=== PATIENT | male | born 1955 | race Caucasian/White ===

== ENCOUNTER → 2018-06-18 09:24 | Outpatient (CLI) | payer OTHER, SELFPAY ==
[2018-06-18 10:29] LABS: Hemoglobin A1C% w Est Avg Glu 9.1 % (4.0-6.0)
== END ==
PROVIDERS: PCP Family Medicine; Visit Provider Family Medicine
DX: E11.9 Type 2 diabetes mellitus without complications (principal)
CPT/HCPCS: 36415; 83036

== ENCOUNTER → 2018-09-25 11:05 | Outpatient (CLI) | payer OTHER, SELFPAY ==
[2018-09-25 11:59] LABS: Hemoglobin A1C% w Est Avg Glu 9.9 % (4.0-6.0)
[2018-09-25 12:25] LABS: Cholesterol 214 mg/dL (140-199); Creatine Kinase 89 U/L (55-170); HDL Cholesterol 40 mg/dL (40-60); LDL Cholesterol Calculated 105 mg/dL (<100); Triglycerides 345 mg/dL (35-150)
== END ==
PROVIDERS: PCP Family Medicine; Visit Provider Family Medicine
DX: E78.5 Hyperlipidemia, unspecified (principal); E11.9 Type 2 diabetes mellitus without complications
CPT/HCPCS: 36415; 80061; 82550; 83036

== ENCOUNTER → 2019-02-03 09:25 | Outpatient (CLI) | payer OTHER, SELFPAY ==
[2019-02-03 10:24] LABS: Hemoglobin A1C% w Est Avg Glu 9.5 % (4.0-6.0)
== END ==
PROVIDERS: PCP Family Medicine; Visit Provider Family Medicine
DX: E11.9 Type 2 diabetes mellitus without complications (principal)
CPT/HCPCS: 36415; 83036

== ENCOUNTER 2019-02-12 20:51 | Emergency (ER) | payer OTHER, SELFPAY ==
[2019-02-12 20:54] VITALS: BP 157/98; PULSE 104; RESP 20; TEMP 36.6; O2SAT 96
--- NOTE | 2019-02-12 21:01 | ED_ITS ---
HPI - Neuro Symptoms/Deficit General Chief Complaint: Neuro Symptoms/Deficit Stated Complaint: LIGHTHEADED, BLURRY VISION Time Seen by Provider: 02/12/19 21:00 Source: patient Mode of arrival: ambulatory Limitations: no limitations History of Present Illness HPI Narrative: Patient is a 63-year-old male here for evaluation of vision changes. He states that at least 2 days ago if not longer than that he started having episodes where he would look down and he would see double. He states he feels like this has been worsening over the past couple days. A couple days ago he did have a right-sided headache but this is now gone. Does have a history of diabetes and hypertension but does not check these values at home. He states that he is taking his medications. He describes the vision changes has when he looks down or looks to the side he sees double vision. He states that it is a vertical diplopia. States that the symptoms resolve when he looks straight ahead or looks up. He states that the symptoms are not there if he covers 1 eye. No prior eye issues. On Anticoagulants: No Related Data Home Medications Medication Instructions Recorded Confirmed aspirin 81 mg tablet,delayed 81 mg PO DAILY 03/26/18 10/02/18 release coenzyme Q10 75 mg capsule 75 mg PO DAILY 10/02/18 10/02/18 Previous Rx's Medication Instructions Recorded glimepiride [Amaryl] 8 mg PO QAM #180 tab 12/04/17 losartan 50 mg PO BID #180 tab 12/04/17 metformin 0 PO SEE INSTRUCTIONS #225 tab 12/04/17 amlodipine 5 mg tablet 5 mg PO QDAY #90 tab 03/26/18 empagliflozin 10 mg tablet 10 mg PO QAM #30 tab 10/02/18 Allergies Allergy/AdvReac Type Severity Reaction Status Date / Time latex [LATEX] Allergy Mild LOCALIZED Verified 10/02/18 10:10 RASH Review of Systems Constitutional Denies fatigue and Denies headache(s) Eyes Denies change in vision, Reports diplopia, Denies itchy eyes, Denies loss of vision and Denies photophobia ENT Ears, Nose, Mouth, and Throat: Denies vertigo, Denies dizziness, Denies ear discharge, Denies facial pain, Denies headache(s), Denies epistaxis, Denies disequilibrium and Denies sore throat Cardiovascular Denies chest pain, Denies palpitations and Denies dyspnea Respiratory Denies cough and Denies dyspnea Gastrointestinal Gastrointestinal: Denies abdominal pain, Denies nausea and Denies vomiting Genitourinary Denies dysuria Musculoskeletal Denies back pain Integumentary/Breasts Denies rash Neurologic Denies abnormal speech, Denies behavioral changes, Denies confusion, Denies vertigo, Denies dizziness, Denies headache(s), Denies lack of coordination, Denies focal weakness, Denies loss of vision, Denies paresthesias and Denies disequilibrium Psychiatric Denies behavioral changes and Denies confusion Endocrine Denies fatigue and Denies palpitations Hematologic/Lymphatic Denies easy bleeding and Denies easy bruising Allergic/Immunologic Denies itchy eyes [facility] Medical History Diabetes (Acute) Hypertension (Acute) Family History (Updated 07/29/15 @ 00:00 by Conversion Provider) Brother Diabetes mellitus Father Alcoholism Colorectal cancer Congestive heart failure Hyperlipidemia Mother Alcoholism Sister Diabetes mellitus Social History Smoking Status: Never smoker Family History (Updated 07/29/15 @ 00:00 by Conversion Provider) Brother Diabetes mellitus Father Alcoholism Colorectal cancer Congestive heart failure Hyperlipidemia Mother Alcoholism Sister Diabetes mellitus Social History Smoking Status: Never smoker Exam Initial Vital Signs Initial Vital Signs: Vital Signs Temperature 97.8 F 02/12/19 20:54 Pulse Rate 104 H 02/12/19 20:54 Respiratory Rate 20 02/12/19 20:54 Blood Pressure 157/98 H 02/12/19 20:54 Pulse Oximetry 96 02/12/19 20:54 Const General: cooperative, comfortable, well developed, well groomed and No acute distress Orientation: alert, awake and oriented x3 HENMT Head: normal to inspection and normocephalic Nose: external nose normal Face and sinus: normal facial exam Mouth: oral mucosae normal Eyes Pupils: PERRL EOM: EOM intact bilaterally Other: With binocular vision patient appears that inferior and medial deviation of the left eye is not as much as the right eye. Resp Effort & Inspection: normal respiratory effort Cardio Rate: tachycardic Rhythm: regular rhythm Pulses: radial pulses present GI Inspection: non-distended Palpation: soft Skin Lesions: no lesions Rashes: no rashes Neuro General: alert, awake and oriented x3 Cranial Nerves: CN's II-XI intact bilaterally (Cranial nerves intact except for what is described in the eye section) Cognition: normal cognition Speech: speech normal Gait: normal gait Motor: muscle tone normal throughout Sensory Exam: no sensory deficits noted Extrem General: normal to inspection and capillary refill normal Psych Appearance: grossly normal and well kempt Scores GCS [place] coma scale eye opening: Spontaneous Reji coma scale verbal response: Orientated [place] coma scale motor response: Obey commands Reji coma scale total score: 15 NIH Stroke Scale Level of Conciousness: Alert, keenly responsive Ask month/age: Answers both questions correctly. Open/close eyes, close hand: Performs both tasks correctly Best gaze horizontal: Normal Visual day: No visual loss Facial palsy: Normal symetrical movement Left arm drift: No drift for full 10 sec Right arm drift: No drift for full 10 sec Left leg drift: No drift for full 10 sec Right leg drift: No drift for full 10 sec Limb ataxia: Absent Sensory on face/arms/legs: Normal, no sensory loss Best language: No aphasia, normal Dysarthria: Normal Extinction or inattention: No abnormality Total NIH Stroke scale score: 0 Course Orders Ordered: ED Orders 02/12/19 21:02 EKG-12 Lead Stat 02/12/19 21:10 Basic Metabolic Panel Stat Complete Blood Count AUTO DIFF Stat Erythrocyte Sedimentation Rate Stat Thyroid Stimulating Hormone Stat 02/12/19 21:44 CT head/brain wo con Stat Vital Signs - 8 hr 02/12/19 20:54 02/12/19 23:04 Temperature 97.8 F 98.4 F Pulse Rate 104 H 92 H Respiratory Rate 20 16 Blood Pressure 157/98 H 131/77 Pulse Oximetry 96 96 MDM - Neuro Symptoms/Deficit Lab Data Attestation: I reviewed the patient's lab results. Result diagrams: 02/12/19 21:10 02/12/19 21:10 Lab Results 02/12/19 02/12/19 02/12/19 Range/Units 21:10 21:10 21:10 WBC 7.5 (4.5-11.0) X10^3/uL RBC 5.81 (4.5-5.9) X10^6/uL Hgb 16.2 (13.5-17.5) g/dL Hct 48.2 (41-53) % MCV 83.0 (80-100) fL MCH 27.9 (26-34) PG MCHC 33.7 (30-36) % RDW 14.6 (11.6-14.8) % Plt Count 199 (150-400) X10^3/uL Neut % (Auto) 43.2 L (50-75) % Lymph % (Auto) 44.6 H (25-40) % [place] % (Auto) 7.8 (3-14) % Eos % (Auto) 3.7 (2-4) % Baso % (Auto) 0.7 (0-2) % Neut # (Auto) 3300 (9230-4930) /uL Lymph # (Auto) 3400 (9018-6354) /uL [place] # (Auto) 600 (0-900) /uL Eos # (Auto) 300 (0-450) /uL Baso # (Auto) 100 (0-100) /uL ESR 6 (0-15) MM/HR Sodium 137 (137-145) mmol/L Potassium 4.1 (3.4-5.1) mmol/L Chloride 100 (98-107) mmol/L Carbon Dioxide 24 (22-32) mmol/L BUN 27 H (9-20) mg/dL Creatinine 0.90 (0.66-1.25) mg/dL Estimated GFR > 60.0 (>60) mL/min BUN/Creatinine Ratio 30.0 H (6-22) Glucose 248 H (80-110) mg/dL Calcium 9.9 (8.4-10.2) mg/dL TSH 5.88 H (0.47-4.68) uIU/mL Imaging Data CT scan - head: Radiologist's impression: [address] [address] [address] Scan Report Signed Patient: Juan Carlos Nascimento LMR#: [id number] : 5Acct:[id number] Age/Sex: 63 / MDate of Service: 02/12/19 Loc: ED Accession Number: [id number] Procedure: CT head/brain wo con Ordering Provider: Guillermo Segundo D.O. PROCEDURE: CT HEAD/BRAIN WO CON INDICATIONS: Diplopia TECHNIQUE: Noncontrast 4.5 mm thick angled axial sections acquired from the foramen magnum to the vertex, with coronal and sagittal reformats. For radiation dose reduction, the following was used: automated exposure control, adjustment of mA and/or kV according to patient size. COMPARISON: None. FINDINGS: Image quality: Excellent. CSF spaces: Basal cisterns are patent. No extra-axial fluid collections. Ventricles are normal in size and shape. Brain: No midline shift. No intracranial masses or hemorrhage. Nath-white matter interface is normal. Skull and face: Calvarium and visualized facial bones are intact, without suspicious lesions. Sinuses: Visualized sinuses and mastoids are clear. IMPRESSION: No trauma found, source of diplopia is not seen. Dictated by: Terry Greenwood M.D. on 02/12/2019 at 22:08 Approved by: Terry Greenwood M.D. on 02/12/2019 at 22:08 ECG Data Attestation: I personally reviewed and interpreted this ECG as follows: Prior ECG tracings: not available for review Interpretation: Sinus rhythm Ventricular rate of 99 Left axis deviation Normal QRS Normal QTC Nonspecific ST T wave changes MDM Narrative Medical decision making narrative: Patient with a normal neurologic exam except for what appears to be a left-sided cranial nerve 4 palsy. All of the patient's symptoms are not present when he is tested monocular. Head CT is unremarkable. Labs are unremarkable. TSH is slightly elevated and I did talk with the patient about this. Informed today needed to contact his primary provider about this. He does not have any tenderness over the right temporal artery. His ESR is negative. I suspect this is an isolated 4th nerve palsy. Informed the patient he needed to contact his primary doctor to discuss the indications for referral for an MRI in to see Ophthalmology. Patient was given return pr ecautions. He expressed understanding and agreement plan. Discharge Plan Departure Patient Disposition: Home Clinical Impression: Fourth cranial nerve palsy Qualifiers: Laterality: left Qualified Code(s): H49.12 - Fourth [trochlear] nerve palsy, left eye Discharge Date/Time: 02/12/19 23:04 Interventions: ED Discharge Assessment Last Done: 02/12/19 23:04 Instructions: DI for Double Vision Activity Restrictions/Additional Instructions: I do recommend that you take your blood sugar and blood pressure at home like we discussed. Tomorrow contact your primary care doctor's office to discuss the indications for referral to have an MRI and/or to see Ophthalmology. Return to the emergency department for any new or worsening symptoms Prescriptions: No Action losartan 50 MG tablet 50 mg PO BID Qty: 180 RF: 3 metformin 1,000 MG tablet PO SEE INSTRUCTIONS Qty: 225 RF: 3 glimepiride [Amaryl] 4 MG tablet 8 mg PO QAM Qty: 180 RF: 3 aspirin [Adult Low Dose Aspirin] 81 mg tablet,delayed release (DR/EC) 81 mg PO DAILY RF: 0 amlodipine [Norvasc] 5 mg tablet 5 mg PO QDAY Qty: 90 RF: 2 coenzyme Q10 [Ultra CoQ10] 75 mg capsule 75 mg PO DAILY RF: 0 empagliflozin 10 mg tablet 10 mg PO QAM Qty: 30 RF: 1 Referrals: Romelia Bedoya DO [Primary Care Provider] -
--- NOTE | 2019-02-12 21:44 | DI.CT.S_ITS ---
PROCEDURE: CT HEAD/BRAIN WO CON INDICATIONS: Diplopia TECHNIQUE: Noncontrast 4.5 mm thick angled axial sections acquired from the foramen magnum to the vertex, with coronal and sagittal reformats. For radiation dose reduction, the following was used: automated exposure control, adjustment of mA and/or kV according to patient size. COMPARISON: None. FINDINGS: Image quality: Excellent. CSF spaces: Basal cisterns are patent. No extra-axial fluid collections. Ventricles are normal in size and shape. Brain: No midline shift. No intracranial masses or hemorrhage. Nath-white matter interface is normal. Skull and face: Calvarium and visualized facial bones are intact, without suspicious lesions. Sinuses: Visualized sinuses and mastoids are clear. IMPRESSION: No trauma found, source of diplopia is not seen. Dictated by: Terry Greenwood M.D. on 02/12/2019 at 22:08 Approved by: Terry Greenwood M.D. on 02/12/2019 at 22:08
[2019-02-12 22:01] LABS: Add Manual Diff / Slide Review NO; Basophils Absolute Auto 100 /uL (0-100); Basophils Percent Auto 0.7 % (0-2); Eosinophils Absolute Auto 300 /uL (0-450); Eosinophils Percent Auto 3.7 % (2-4); Hematocrit 48.2 % (41-53); Hemoglobin 16.2 g/dL (13.5-17.5); Lymphocytes Absolute Auto 3400 /uL (1100-4500); Lymphocytes Percent Auto 44.6 % (25-40); Mean Corpuscular HGB Conc 33.7 % (30-36); Mean Corpuscular Hemoglobin 27.9 PG (26-34); Monocytes Absolute Auto 600 /uL (0-900); Monocytes Percent Auto 7.8 % (3-14); Neutrophils Absolute Auto 3300 /uL (1500-7000); Neutrophils Percent Auto 43.2 % (50-75); Platelet Count 199 X10^3/uL (150-400); Red Blood Cell Count 5.81 X10^6/uL (4.5-5.9); Red Cell Distribution Width 14.6 % (11.6-14.8); White Blood Cell Count 7.5 X10^3/uL (4.5-11.0)
[2019-02-12 22:06] LABS: Blood Urea Nitrogen 27 mg/dL (9-20); Calcium 9.9 mg/dL (8.4-10.2); Carbon Dioxide 24 mmol/L (22-32); Chloride 100 mmol/L (98-107); Estimated Glomerular Filt Rate > 60.0 mL/min (>60); Glucose 248 mg/dL (80-110); HEMOLYSIS 28 (0-50); Potassium 4.1 mmol/L (3.4-5.1); Sodium 137 mmol/L (137-145)
[2019-02-12 22:19] LABS: Erythrocyte Sedimentation Rate 6 MM/HR (0-15)
[2019-02-12 22:44] LABS: Thyroid Stimulating Hormone 5.88 uIU/mL (0.47-4.68)
[2019-02-12 23:04] VITALS: BP 131/77; PULSE 92; RESP 16; TEMP 36.9; O2SAT 96
== END 2019-02-12 23:04 | disposition home or self-care (01) ==
PROVIDERS: Emergency Provider Emergency Medicine; Family Provider Family Medicine; PCP Family Medicine
DX: H49.12 Fourth [trochlear] nerve palsy, left eye (principal); R42 Dizziness and giddiness; R51 Headache; H53.2 Diplopia; I10 Essential (primary) hypertension
CPT/HCPCS: 36591; 70450; 80048; 84443; 85025; 85651; 93005; 93010; 99282; 99285; 99291

== ENCOUNTER 2019-02-16 09:53 | Emergency (ER) | payer OTHER, SELFPAY ==
[2019-02-16 10:11] VITALS: BP 160/100; PULSE 72; RESP 14; TEMP 36.5; O2SAT 99
--- NOTE | 2019-02-16 10:21 | ED.GENADULT ---
HPI - General Adult General Chief complaint: Hypertension Stated complaint: Headache,High BP Time Seen by Provider: 02/16/19 10:21 Source: patient Mode of arrival: ambulatory Limitations: no limitations History of Present Illness HPI narrative: Patient is a 63-year-old male presents with right-sided headache. He says behind his eye been there for about a week. In fact he was seen and evaluated here on 02/13/2019 where he had blood work and a CT. At that time he was having double vision he says he is not having double vision anymore. His blood pressure has remained elevated. He has only taken Tylenol for pain which she says has not helped. He has no numbness tingling or weakness. No blacking or loss of vision. Related Data Home Medications Medication Instructions Recorded Confirmed aspirin 81 mg tablet,delayed 81 mg PO DAILY 03/26/18 10/02/18 release coenzyme Q10 75 mg capsule 75 mg PO DAILY 10/02/18 10/02/18 Previous Rx's Medication Instructions Recorded glimepiride [Amaryl] 8 mg PO QAM #180 tab 12/04/17 losartan 50 mg PO BID #180 tab 12/04/17 metformin 0 PO SEE INSTRUCTIONS #225 tab 12/04/17 amlodipine 5 mg tablet 5 mg PO QDAY #90 tab 03/26/18 empagliflozin 10 mg tablet 10 mg PO QAM #30 tab 10/02/18 Allergies Allergy/AdvReac Type Severity Reaction Status Date / Time latex [LATEX] Allergy Mild LOCALIZED Verified 10/02/18 10:10 RASH Review of Systems Review of Systems ROS Unobtainable: All systems reviewed & are unremarkable except as noted in HPI and below Constitutional Denies chills, Denies fever(s), Denies lethargy and Denies weakness Eyes Reports diplopia (previously now resolved), Denies eye discharge and Denies dry eyes Cardiovascular Denies chest pain, Denies irregular heart rhythm, Denies lightheadedness, Denies palpitations, Denies dyspnea, Denies dyspnea on exertion and Denies orthopnea Respiratory Denies cough, Denies dyspnea, Denies dyspnea on exertion and Denies wheezing Gastrointestinal Gastrointestinal: Denies abdominal pain, Denies change in bowel habits, Denies diarrhea, Denies nausea and Denies vomiting Genitourinary Denies hematuria, Denies flank pain, Denies urinary incontinence and Denies urinary urgency Musculoskeletal Denies back pain, Denies muscle weakness, Denies numbness and Denies tingling Integumentary/Breasts Denies pruritus, Denies erythema, Denies rash and Denies wounds Neurologic Denies numbness, Denies tingling and Denies weakness Endocrine Denies palpitations Allergic/Immunologic Denies wheezing [facility] Medical History Diabetes (Acute) Hypertension (Acute) Family History (Updated 07/29/15 @ 00:00 by Conversion Provider) Brother Diabetes mellitus Father Alcoholism Colorectal cancer Congestive heart failure Hyperlipidemia Mother Alcoholism Sister Diabetes mellitus Social History Smoking Status: Never smoker Family History Brother Diabetes mellitus Father Alcoholism Colorectal cancer Congestive heart failure Hyperlipidemia Mother Alcoholism Sister Diabetes mellitus Social History Smoking Status: Never smoker Exam Initial Vital Signs Initial Vital Signs: Vital Signs Temperature 97.7 F 02/16/19 10:11 Pulse Rate 72 02/16/19 10:11 Respiratory Rate 14 02/16/19 10:11 Blood Pressure 160/100 H 02/16/19 10:11 Pulse Oximetry 99 02/16/19 10:11 GENERAL: Well-appearing, well-nourished and in no acute distress. HEENT: Head atraumatic,EOMI, pupils reactive, face symmetric, neck is supple no vertebral tenderness no meningeal Eye pressure right 20 mmHg, left eye 23 mmHg CARDIOVASCULAR: Regular rate and rhythm without murmurs, rubs or gallops. RESPIRATORY: Breath sounds equal bilaterally, no wheezes rales or rhonchi. ABDOMEN: Soft, nontender. Normoactive bowel sounds all 4 quadrants. No guarding or rebound. EXTREMITIES: Normal range of motion, no clubbing or edema. Neurovascularly intact NEUROLOGICAL: Alert and oriented x4.Normal gait and speech. Cranial nerves II through XII grossly intact. Good [id number], good [id number], strength equal bilaterally, no dysarthria or aphasia, sensation in tact to soft touch bilaterally, no visual changes, no facial droop SKIN: Warm, dry, no laceration, no petechiae, no rashes or lesions. Scores NIH Stroke Scale Level of Conciousness: Alert, keenly responsive Ask month/age: Answers both questions correctly. Open/close eyes, close hand: Performs both tasks correctly Best gaze horizontal: Normal Visual day: No visual loss Facial palsy: Normal symetrical movement Left arm drift: No drift for full 10 sec Right arm drift: No drift for full 10 sec Left leg drift: No drift for full 10 sec Right leg drift: No drift for full 10 sec Limb ataxia: Absent Sensory on face/arms/legs: Normal, no sensory loss Best language: No aphasia, normal Dysarthria: Normal Extinction or inattention: No abnormality Total NIH Stroke scale score: 0 Course Orders Ordered: ED Orders 02/16/19 10:57 Complete Blood Count AUTO DIFF Stat Comprehensive Metabolic Panel Stat Lipase Stat 02/16/19 11:33 CT head/brain wo con Stat Discontinued Medications Diphenhydramine HCl (Benadryl) 25 mg IV NOW ONE Stop: 02/16/19 10:39 Last Admin: 02/16/19 11:04 Dose: 25 mg Sodium Chloride (Normal Saline 0.9%) 1,000 mls @ 1,000 mls/hr IV CONT APRIL Last Infusion: 02/16/19 12:04 Dose: 0 mls/hr Admin: 02/16/19 11:00 Dose: 1,000 mls/hr Ketorolac Tromethamine (Toradol) 30 mg IV NOW ONE Stop: 02/16/19 10:39 Last Admin: 02/16/19 10:59 Dose: 30 mg Prochlorperazine (Compazine) 10 mg IV NOW ONE Stop: 02/16/19 10:39 Last Admin: 02/16/19 11:03 Dose: 10 mg Vital Signs - 8 hr 02/16/19 10:11 02/16/19 11:03 02/16/19 13:04 Temperature 97.7 F Pulse Rate 72 80 71 Respiratory Rate 14 14 Blood Pressure 160/100 H 129/86 133/100 H Pulse Oximetry 99 96 Medical Decision Making Lab Data Lab results reviewed: Yes I reviewed the patient's lab results. Result diagrams: 02/16/19 10:57 02/16/19 10:57 Lab Results 02/16/19 02/16/19 Range/Units 10:57 10:57 WBC 6.6 (4.5-11.0) X10^3/uL RBC 5.68 (4.5-5.9) X10^6/uL Hgb 15.9 (13.5-17.5) g/dL Hct 47.1 (41-53) % MCV 82.9 (80-100) fL MCH 28.0 (26-34) PG MCHC 33.7 (30-36) % RDW 14.1 (11.6-14.8) % Plt Count 175 (150-400) X10^3/uL Neut % (Auto) 52.2 (50-75) % Lymph % (Auto) 36.6 (25-40) % [place] % (Auto) 6.4 (3-14) % Eos % (Auto) 3.9 (2-4) % Baso % (Auto) 0.9 (0-2) % Neut # (Auto) 3400 (8593-9508) /uL Lymph # (Auto) 2400 (3336-6724) /uL [place] # (Auto) 400 (0-900) /uL Eos # (Auto) 300 (0-450) /uL Baso # (Auto) 100 (0-100) /uL Sodium 137 (137-145) mmol/L Potassium 4.4 (3.4-5.1) mmol/L Chloride 99 (98-107) mmol/L Carbon Dioxide 24 (22-32) mmol/L BUN 14 (9-20) mg/dL Creatinine 0.90 (0.66-1.25) mg/dL Estimated GFR > 60.0 (>60) mL/min BUN/Creatinine Ratio 15.6 (6-22) Glucose 196 H (80-110) mg/dL Calcium 9.5 (8.4-10.2) mg/dL Total Bilirubin 0.4 (0.2-1.3) mg/dL AST 54 (17-59) IU/L ALT 71 (21-72) IU/L Alkaline Phosphatase 69 (38-126) U/L Total Protein 7.5 (6.3-8.2) g/dL Albumin 4.6 (3.5-5.0) g/dL Globulin 2.9 (1.7-4.1) g/dL Albumin/Globulin Ratio 1.6 (1.0-2.8) Lipase 133 (23-300) U/L Urine Dip Bedside Urine Glucose 100 mg/dl Bedside Urine Bilirubin - Negative Bedside Urine Ketone - Negative Urine Specific [place] 1.030 Bedside Urine Occult Blood - Negative Bedside Urine pH 6.0 Bedside Urine Protein +/- 15 Bedside Urine Urobilinogen - Negative Bedside Urine Nitrite - Negative Bedside Urine Leukocytes - Negative Esterase Point of care testing: Urine Dip Bedside Urine Glucose 100 mg/dl Bedside Urine Bilirubin - Negative Bedside Urine Ketone - Negative Urine Specific [place] 1.030 Bedside Urine Occult Blood - Negative Bedside Urine pH 6.0 Bedside Urine Protein +/- 15 Bedside Urine Urobilinogen - Negative Bedside Urine Nitrite - Negative Bedside Urine Leukocytes - Negative Esterase Imaging Data CT scan - head: Radiologist's impression: PROCEDURE: CT HEAD/BRAIN WO CON INDICATIONS: worsening right sided headache TECHNIQUE: Noncontrast 4.5 mm thick angled axial sections acquired from the foramen magnum to the vertex, with coronal and sagittal reformats. For radiation dose reduction, the following was used: automated exposure control, adjustment of mA and/or kV according to patient size. COMPARISON: [facility], CT, CT HEAD/BRAIN WO CON, 02/12/2019, 21:53. FINDINGS: Image quality: Excellent. CSF spaces: Basal cisterns are patent. No extra-axial fluid collections. The ventricles are symmetric in size and shape. Brain: No intracranial bleeds or masses. There is mild cerebral volume loss for age, with resultant ventricular and sulcal prominence. There are mild periventricular and deep white matter chronic small vessel ischemic changes. There is intracranial internal carotid artery atherosclerosis. Skull and face: Calvarium and visualized facial bones appear intact, without suspicious lesions. Sinuses: Visualized sinuses and mastoids are clear. IMPRESSION: 1. No acute intracranial abnormalities. 2. Mild cerebral volume loss and chronic microvascular ischemic changes. Dictated by: Joaquin Newsome M.D. on 02/16/2019 at 11:36 ECG Data Attestation: I personally reviewed and interpreted this ECG as follows: Prior ECG tracings: available for review Interpretation: Normal sinus rate 83 year interval 219 increased from previous EKG. He does have Q-wave noted in lead [address] changes. Low voltage noted. MDM Narrative Medical decision making narrative: Patient is overall feeling much better after migraine cocktail. Head CT again negative pressure in both eyes are within normal limits. No of acute angle glaucoma. Pain seems to be more behind the eye. Blood pressure has improved as pain has improved. We talked about blood pressure control and management and following up with PCP. Also discussed with both and patient has a warning signs of when to return to the ED. He is hungry and would like to go home is overall feeling much better. Discharge Plan Departure Patient Disposition: Home Clinical Impression: Migraine Qualifiers: Migraine type: unspecified Status migrainosus presence: without status migrainosus Intractability: not intractable Qualified Code(s): G43.909 - Migraine, unspecified, not intractable, without status migrainosus Hypertension Qualifiers: Hypertension type: essential hypertension Qualified Code(s): I10 - Essential (primary) hypertension Discharge Date/Time: 02/16/19 13:07 Interventions: ED Discharge Assessment Last Done: 02/16/19 13:04 Instructions: DI for Migraine Activity Restrictions/Additional Instructions: *You have been diagnosed with migraine headache, with hypertension *What to do: At this time of blood pressure has decreased his headache improved CT and blood work are reassuring. Of the please check your blood pressure once a day same time every day and record it. You may need adjustment in her blood pressure medication please talk to her PCP about this. If continuing to have headaches may need to see a neurologist as well. *Continue to take medications as directed *Follow up with your primary care provider in 2-3 days *Return to ER if you should have worsening headache vision changes weakness, speech difficulty, confusion or any new, worsening or concerning symptoms Prescriptions: No Action losartan 50 MG tablet 50 mg PO BID Qty: 180 RF: 3 metformin 1,000 MG tablet PO SEE INSTRUCTIONS Qty: 225 RF: 3 glimepiride [Amaryl] 4 MG tablet 8 mg PO QAM Qty: 180 RF: 3 aspirin [Adult Low Dose Aspirin] 81 mg tablet,delayed release (DR/EC) 81 mg PO DAILY RF: 0 amlodipine [Norvasc] 5 mg tablet 5 mg PO QDAY Qty: 90 RF: 2 coenzyme Q10 [Ultra CoQ10] 75 mg capsule 75 mg PO DAILY RF: 0 empagliflozin 10 mg tablet 10 mg PO QAM Qty: 30 RF: 1 Referrals: Romelia Bedoya DO [Primary Care Provider] -
[2019-02-16] MEDS: KETOROLAC 60 MG/2 ML VIAL 30 MG IV (10:59)
[2019-02-16] MEDS: SODIUM CHLORIDE 0.9% 1,000 ML 1000 ML IV (11:00)
[2019-02-16 11:03] VITALS: BP 129/86; PULSE 80
[2019-02-16] MEDS: PROCHLORPERAZINE 10 MG/2 ML VIAL IV (11:03)
[2019-02-16] MEDS: diphenhydrAMINE 50 MG/ML VIAL 25 MG IV (11:04)
[2019-02-16 11:08] LABS: Add Manual Diff / Slide Review NO; Basophils Absolute Auto 100 /uL (0-100); Basophils Percent Auto 0.9 % (0-2); Eosinophils Absolute Auto 300 /uL (0-450); Eosinophils Percent Auto 3.9 % (2-4); Hematocrit 47.1 % (41-53); Hemoglobin 15.9 g/dL (13.5-17.5); Lymphocytes Absolute Auto 2400 /uL (1100-4500); Lymphocytes Percent Auto 36.6 % (25-40); Mean Corpuscular HGB Conc 33.7 % (30-36); Mean Corpuscular Volume 82.9 fL (80-100); Monocytes Absolute Auto 400 /uL (0-900); Monocytes Percent Auto 6.4 % (3-14); Neutrophils Absolute Auto 3400 /uL (1500-7000); Neutrophils Percent Auto 52.2 % (50-75); Platelet Count 175 X10^3/uL (150-400); Red Blood Cell Count 5.68 X10^6/uL (4.5-5.9); Red Cell Distribution Width 14.1 % (11.6-14.8); White Blood Cell Count 6.6 X10^3/uL (4.5-11.0)
[2019-02-16 11:20] LABS: Alanine Aminotransferase 71 IU/L (21-72); Albumin 4.6 g/dL (3.5-5.0); Albumin Globulin Ratio 1.6 (1.0-2.8); Alkaline Phosphatase 69 U/L (38-126); Aspartate Aminotransferase 54 IU/L (17-59); BUN Creatinine Ratio 15.6 (6-22); Bilirubin Total 0.4 mg/dL (0.2-1.3); Blood Urea Nitrogen 14 mg/dL (9-20); Calcium 9.5 mg/dL (8.4-10.2); Carbon Dioxide 24 mmol/L (22-32); Chloride 99 mmol/L (98-107); Estimated Glomerular Filt Rate > 60.0 mL/min (>60); Globulin 2.9 g/dL (1.7-4.1); Glucose 196 mg/dL (80-110); HEMOLYSIS < 15 (0-50); Lipase 133 U/L (23-300); Potassium 4.4 mmol/L (3.4-5.1); Sodium 137 mmol/L (137-145); Total Protein 7.5 g/dL (6.3-8.2)
--- NOTE | 2019-02-16 11:33 | DI.CT.S_ITS ---
PROCEDURE: CT HEAD/BRAIN WO CON INDICATIONS: worsening right sided headache TECHNIQUE: Noncontrast 4.5 mm thick angled axial sections acquired from the foramen magnum to the vertex, with coronal and sagittal reformats. For radiation dose reduction, the following was used: automated exposure control, adjustment of mA and/or kV according to patient size. COMPARISON: [facility], CT, CT HEAD/BRAIN WO CON, 02/12/2019, 21:53. FINDINGS: Image quality: Excellent. CSF spaces: Basal cisterns are patent. No extra-axial fluid collections. The ventricles are symmetric in size and shape. Brain: No intracranial bleeds or masses. There is mild cerebral volume loss for age, with resultant ventricular and sulcal prominence. There are mild periventricular and deep white matter chronic small vessel ischemic changes. There is intracranial internal carotid artery atherosclerosis. Skull and face: Calvarium and visualized facial bones appear intact, without suspicious lesions. Sinuses: Visualized sinuses and mastoids are clear. IMPRESSION: 1. No acute intracranial abnormalities. 2. Mild cerebral volume loss and chronic microvascular ischemic changes. Dictated by: Joaquin Newsome M.D. on 02/16/2019 at 11:36 Approved by: Joaquin Newsome M.D. on 02/16/2019 at 11:40
[2019-02-16 13:04] VITALS: BP 133/100; PULSE 71; RESP 14; O2SAT 96
== END 2019-02-16 13:07 | disposition home or self-care (01) ==
PROVIDERS: Emergency Provider Emergency Medicine; PCP Family Medicine
DX: G43.909 Migraine, unspecified, not intractable, without status migrainosus (principal); R03.0 Elevated blood-pressure reading, without diagnosis of hypertension
CPT/HCPCS: 36415; 36591; 70450; 80053; 81003; 83690; 85025; 93005; 96361; 96374; 96375; 99283; 99284; 99285; J0780; J1200; J1885

== ENCOUNTER → 2019-02-23 06:25 | Outpatient (CLI) | payer OTHER, SELFPAY ==
--- NOTE | 2019-02-23 06:26 | DI.ECHO.S_ITS ---
[place] [facility]---------+ [facility] +---------+ : : [address] [place] : : : : [id number] : : : : Phone: [phone]+ Echocardiogram Report + + :Name: MARIUSZ GODINEZ Study Date: 02/23/2019 Height: 71 in : :[facility] Weight: 274 lb : : Gender: Male BSA: 2.4 m2 : :: 1955 Age: 63 yrs BP: 150/100 mmHg: :Reason For Study: MURMUR : :Ordering Physician: Finn : :Aureliano Performed By: Maureen Lerma : :Referring: FINN NG : + + Interpretation Summary The study quality was technically difficult. Left ventricular wall thickness is mild-moderately increased. The left ventricular ejection fraction is normal. There are no obvious focal wall motion abnormalities noted but poor endocardial definition reduces the sensitivity for the detection of such. Diastolic parameters suggest a relaxation abnormality of the left ventricle, consistent with probable normal filling pressures. There is mild aortic stenosis. Borderline right ventricular enlargement. However, visualization was limited. Pulmonary artery pressures cannot be estimated because of the lack of a measurable TR jet velocity but the IVC suggests a CVP of around 3 mmHg. The ascending aorta is mildly enlarged at 3.9 cm. -Suspect the murmur to be related to aortic valve sclerosis with mild aortic stenosis. Clinical correlation is recommended. -No prior echo for comparison. Procedure: A two-dimensional transthoracic echocardiogram with color flow and Doppler was performed. The study quality was technically adequate. There is no prior echocardiogram noted for this patient. The study quality was technically difficult. The patient was in normal sinus rhythm during the exam. Left Ventricle: The left ventricle is normal in size. Left ventricular wall thickness is mild-moderately increased. The left ventricular ejection fraction is normal. The ejection fraction is estimated to be 55-60%. There are no obvious focal wall motion abnormalities noted but poor endocardial definition reduces the sensitivity for the detection of such. Diastolic parameters suggest a relaxation abnormality of the left ventricle, consistent with probable normal filling pressures. Right Ventricle: The right ventricle is not well visualized. Borderline right ventricular enlargement. The right ventricular systolic function is normal. Atria: The left atrium is mildly dilated. Right atrial size is normal. There is no Doppler evidence for an interatrial shunt. Mitral Valve: The mitral valve is normal. There is no mitral valve stenosis. There is trace mitral regurgitation. Aortic Valve: The aortic valve is mildly calcified. Leaflet mobility is mildly reduced. The aortic valve is not well visualized. There is mild aortic stenosis. The calculated aortic valve area is 1.8 cm2. The peak aortic velocity is 2.2 m/sec. The aortic valve mean gradient is 11 mmHg. There is trace aortic regurgitation. Tricuspid Valve: The tricuspid valve is normal. There is a trace or physiologic amount of tricuspid regurgitation. Pulmonary artery pressures cannot be estimated because of the lack of a measurable TR jet velocity but the IVC suggests a CVP of around 3 mmHg. Pulmonic Valve: The pulmonic valve is not well visualized. There is a trace or physiologic amount of pulmonic regurgitation. Great Vessels: The aortic root is normal size. The ascending aorta is mildly enlarged. The aortic arch could not be visualized. The pulmonary is not well visualized. The IVC is of normal diameter and collapses greater than 50% with a sniff. This suggests a low right atrial pressure of 3 mm Hg. Pericardium/ Pleura There is no pericardial effusion. There is no pleural effusion. MMode/2D Measurements & Calculations LVIDd: 4.7 cm LVOT diam: 2.3 cm LVIDs: 3.0 cm Ao root diam: 3.6 cm FS: 37.0 % asc Aorta Diam: 3.9 cm EPSS: 0.47 cm IVSd: 1.3 cm LVPWd: 1.3 cm LV villegas. diameter/BSA (cm/m^2): 2.0 LV sys. diameter/BSA (cm/m^2): 1.2 LA A2 area: 24.4 cm2 RA long axis: 5.1 cm LA A4 area: 23.7 cm2 RA area: 14.9 cm2 LA length (vol): 5.7 cm RA vol: 36.6 ml LA vol: 86.9 ml RA : 15.2 ml/m2 LA vol index: 36.0 ml/m2 IVC diam: 1.7 cm RVD1 (basal): 4.5 cm RVD2 (mid): 3.5 cm TAPSE: 2.1 cm Doppler Measurements & Calculations Ao V2 max: 218.1 cm/sec LVOT Max Andres: 93.3 cm/sec Ao V2 mean: 156.7 cm/sec LV V1 max P.5 mmHg Ao max P.0 mmHg LV V1 VTI: 17.8 cm Ao mean P.9 mmHg BARRETT(I,D): 1.7 cm2 Ao V2 VTI: 44.3 cm BARRETT(V,D): 1.8 cm2 sev ratio: 0.40 BARRETT indexed to BSA (cm^2/m^2): 0.69 MV E max andres: 62.6 cm/sec PA V2 max: 82.4 cm/sec MV A max andres: 86.5 cm/sec PA V2 mean: 52.1 cm/sec MV E/A: 0.72 PA mean P.2 mmHg Med Peak E' Andres: 4.3 cm/sec PA Accel Time: 0.08 sec E/E' med: 14.5 Lat Peak E' Andres: 6.7 cm/sec E/E' lat: 9.3 E/e' average: 11.9 MV P1/2t: 46.6 msec MV P1/2t max andres: 62.0 cm/sec SV(LVOT): 73.5 ml MVA(P1/2t): 4.7 cm2 Electronically signed by: Héctor Ye M.D. on Reading Physician:02/23/2019 10:16 PM
== END ==
PROVIDERS: PCP Family Medicine; Visit Provider Family Medicine
DX: I35.0 Nonrheumatic aortic (valve) stenosis (principal); R01.1 Cardiac murmur, unspecified; I77.89 Other specified disorders of arteries and arterioles
CPT/HCPCS: 93306

== ENCOUNTER → 2019-03-18 08:00 | Outpatient (CLI) | payer OTHER, SELFPAY ==
--- NOTE | 2019-03-18 09:20 | P.PCN_ITS ---
Cardiac Stress Test Report Referral & Results Date Patient Seen: 03/18/19 Requesting provider: Romelia Bedoya Indication: History of myocardial infarction Rest ECG: Interventricular conduction delay, nonspecific Procedure Note: After both written and verbal informed consent the patient had an IV started by the diagnostic imaging RN and then was hooked up to the [facility] monitoring system. The patient was placed on the treadmill at 1 mile an hour with no elevation and was then injected with the Diane scan material. The Cardiolite was then immediately administered. The patient spent an additional 2-3 minutes on the treadmill before being returned to the [facility] in the supine position. The patient had a normal response to all infused materials. Impression: Please see perfusion imaging for further details regarding ischemia Please note: Actual ECG tracings can be found in the PACS system.
--- NOTE | 2019-03-19 16:02 | DI.NM.S_ITS ---
DATE OF SERVICE: 03/18/2019 PROCEDURE: Pharmacological perfusion study. INDICATIONS: History of anginal pain, history of, myocardial infarction, diabetes mellitus, hypertension, hyperlipidemia. RADIOPHARMACEUTICAL: 24.9 mCi technetium-99m Myoview IV was injected at stress and 25.3 mCi technetium-99m Myoview IV was injected at rest. CARDIAC STRESS: Patient underwent pharmacological perfusion study under the supervision of an attending staff. Patient received IV Lexiscan as per standard protocol. Baseline rhythm was sinus with QS complexes in V1 to be 2 and low-voltage complexes at least in chest leads. During stress, there were no convincing ischemic changes. There were no significant arrhythmias. Patient remained hemodynamically stable. RAW DATA: There was increased subdiaphragmatic activity. Patient's weight is 273 pounds. GATED STUDY: Resting stress LV ejection fraction 69%. Stress LV ejection fraction 72%. Inferolateral wall appears to be hypokinetic. Resting end- diastolic volume 118 mL. Lung/heart ratio is 0.27, which is within normal limits. On my visual inspection, I don't see any obvious transient ischemic dilatation. MYOCARDIAL PERFUSION SCAN: Stress supine, resting supine, and stress prone images were compared to each other. Resting supine images revealed small-sized mildly decreased perfusion of basal inferolateral wall which got significantly worse during stress supine and stress prone images extending all the way up to the distal inferolateral wall. CONCLUSION: Small basal inferolateral infarction with significant reversible ischemia involving the entire inferolateral wall. Discussed the finding with Dr. Bedoya. Will recommend left heart catheterization in anticipation of revascularization. PilyAndrésJuan Carlos - FREDDY/maria e/ doc#: [id number]/job#: [id number] dd: 03/19/2019 12:45:00 dt: 03/19/2019 15:52:00 DICTATING MD/COPIES TO: Roland Ceja MD COPIES MNE: YURY
== END ==
PROVIDERS: PCP Family Medicine; Visit Provider Family Medicine
DX: I20.9 Angina pectoris, unspecified (principal); I25.2 Old myocardial infarction; I10 Essential (primary) hypertension; E11.9 Type 2 diabetes mellitus without complications; E78.5 Hyperlipidemia, unspecified
CPT/HCPCS: 78452; 93016; 93017; 93018; A9502; J2785

== ENCOUNTER → 2019-06-24 11:17 | Outpatient (CLI) | payer OTHER, SELFPAY ==
[2019-06-24 12:37] LABS: Hemoglobin A1C% w Est Avg Glu 8.3 % (4.0-6.0)
[2019-06-24 13:49] LABS: Blood Urea Nitrogen 17 mg/dL (9-20); Calcium 9.7 mg/dL (8.4-10.2); Carbon Dioxide 27 mmol/L (22-32); Chloride 99 mmol/L (98-107); Cholesterol 111 mg/dL (140-199); Estimated Glomerular Filt Rate > 60.0 mL/min (>60); Glucose 214 mg/dL (80-110); HDL Cholesterol 38 mg/dL (40-60); HEMOLYSIS < 15 (0-50); LDL Cholesterol Calculated 40 mg/dL (<100); Potassium 5.2 mmol/L (3.4-5.1); Sodium 139 mmol/L (137-145); Triglycerides 164 mg/dL (35-150)
== END ==
PROVIDERS: PCP Family Medicine; Visit Provider Family Medicine
DX: E11.9 Type 2 diabetes mellitus without complications (principal); E78.5 Hyperlipidemia, unspecified; E11.65 Type 2 diabetes mellitus with hyperglycemia
CPT/HCPCS: 36415; 80048; 80061; 83036

== ENCOUNTER → 2019-10-02 09:42 | Outpatient (CLI) | payer OTHER, SELFPAY ==
[2019-10-02 11:22] LABS: Hemoglobin A1C% w Est Avg Glu 10.7 % (4.0-6.0)
[2019-10-02 12:02] LABS: Alanine Aminotransferase 36 IU/L (<50); Albumin 4.5 g/dL (3.5-5.0); Albumin Globulin Ratio 1.7 (1.0-2.8); Alkaline Phosphatase 72 U/L (38-126); Aspartate Aminotransferase 36 IU/L (17-59); BUN Creatinine Ratio 17.5 (6-22); Bilirubin Total 0.7 mg/dL (0.2-1.3); Blood Urea Nitrogen 21 mg/dL (9-20); Calcium 9.6 mg/dL (8.4-10.2); Carbon Dioxide 26 mmol/L (22-32); Chloride 100 mmol/L (98-107); Estimated Glomerular Filt Rate > 60.0 mL/min (>60); Globulin 2.6 g/dL (1.7-4.1); Glucose 249 mg/dL (80-110); HEMOLYSIS < 15 (0-50); Potassium 5.3 mmol/L (3.4-5.1); Sodium 138 mmol/L (137-145); Total Protein 7.1 g/dL (6.3-8.2)
== END ==
PROVIDERS: PCP Family Medicine; Visit Provider Family Medicine
DX: E11.65 Type 2 diabetes mellitus with hyperglycemia (principal); E78.5 Hyperlipidemia, unspecified; G47.33 Obstructive sleep apnea (adult) (pediatric); I10 Essential (primary) hypertension
CPT/HCPCS: 36415; 80053; 83036; 84443

== ENCOUNTER → 2020-02-18 08:20 | Outpatient (CLI) | payer OTHER, SELFPAY ==
[2020-02-18 11:02] LABS: Hemoglobin A1C% w Est Avg Glu 12.2 % (4.0-6.0)
[2020-02-18 11:33] LABS: Alanine Aminotransferase 35 IU/L (<50); Albumin 4.6 g/dL (3.5-5.0); Albumin Globulin Ratio 1.5 (1.0-2.8); Alkaline Phosphatase 73 U/L (38-126); Aspartate Aminotransferase 40 IU/L (17-59); BUN Creatinine Ratio 14.9 (6-22); Bilirubin Total 0.5 mg/dL (0.2-1.3); Blood Urea Nitrogen 18 mg/dL (9-20); Calcium 9.3 mg/dL (8.4-10.2); Carbon Dioxide 20 mmol/L (22-32); Chloride 102 mmol/L (98-107); Cholesterol 113 mg/dL (140-199); Estimated Glomerular Filt Rate > 60.0 mL/min (>60); Globulin 3.1 g/dL (1.7-4.1); Glucose 262 mg/dL (80-110); HDL Cholesterol 24 mg/dL (40-60); HEMOLYSIS < 15 (0-50); Potassium 4.2 mmol/L (3.4-5.1); Sodium 137 mmol/L (137-145); Total Protein 7.7 g/dL (6.3-8.2); Triglycerides 446 mg/dL (35-150)
[2020-02-19 16:57] LABS: LDL Cholesterol Direct 32 mg/dL (<100)
== END ==
PROVIDERS: PCP Family Medicine; Referring Provider Family Medicine; Visit Provider Family Medicine
DX: E11.65 Type 2 diabetes mellitus with hyperglycemia (principal); E78.5 Hyperlipidemia, unspecified; I10 Essential (primary) hypertension
CPT/HCPCS: 36415; 80053; 80061; 83036; 83721

== ENCOUNTER → 2020-06-06 09:46 | Outpatient (CLI) | payer OTHER, SELFPAY ==
[2020-06-06 10:37] LABS: Hemoglobin A1C% w Est Avg Glu 11.7 % (4.0-6.0)
[2020-06-06 10:41] LABS: Alanine Aminotransferase 37 IU/L (<50); Albumin 4.7 g/dL (3.5-5.0); Albumin Globulin Ratio 1.6 (1.0-2.8); Alkaline Phosphatase 72 U/L (38-126); Aspartate Aminotransferase 36 IU/L (17-59); BUN Creatinine Ratio 15.3 (6-22); Bilirubin Total 0.7 mg/dL (0.2-1.3); Blood Urea Nitrogen 19 mg/dL (9-20); Calcium 9.6 mg/dL (8.4-10.2); Carbon Dioxide 24 mmol/L (22-32); Chloride 100 mmol/L (98-107); Cholesterol 101 mg/dL (140-199); Estimated Glomerular Filt Rate 58.5 mL/min (>60); Globulin 2.9 g/dL (1.7-4.1); Glucose 304 mg/dL (80-110); HDL Cholesterol 27 mg/dL (40-60); HEMOLYSIS < 15 (0-50); LDL Cholesterol Calculated 26 mg/dL (<100); Sodium 135 mmol/L (137-145); Total Protein 7.6 g/dL (6.3-8.2); Triglycerides 241 mg/dL (35-150)
== END ==
PROVIDERS: PCP Family Medicine; Referring Provider Family Medicine; Visit Provider Family Medicine
DX: E11.65 Type 2 diabetes mellitus with hyperglycemia (principal); E78.5 Hyperlipidemia, unspecified; I10 Essential (primary) hypertension; Z68.30 Body mass index [BMI] 30.0-30.9, adult
CPT/HCPCS: 36415; 80053; 80061; 83036

== ENCOUNTER → 2020-06-29 11:36 | Outpatient (CLI) | payer OTHER, SELFPAY | PROVIDERS: PCP Family Medicine; Visit Provider Nurse Practitioner Family | DX: L02.91 Cutaneous abscess, unspecified (principal) | CPT/HCPCS: 87070; 87077; 87147; 87186; 87205 ==

== ENCOUNTER → 2021-02-13 09:22 | Outpatient (CLI) | payer OTHER, SELFPAY ==
[2021-02-13 10:51] LABS: Hemoglobin A1C% w Est Avg Glu 11.1 % (4.0-6.0)
[2021-02-13 10:59] LABS: Alanine Aminotransferase 32 IU/L (<50); Albumin 4.4 g/dL (3.5-5.0); Albumin Globulin Ratio 1.8 (1.0-2.8); Alkaline Phosphatase 68 U/L (38-126); Aspartate Aminotransferase 33 IU/L (17-59); BUN Creatinine Ratio 16.8 (6-22); Bilirubin Total 0.6 mg/dL (0.2-1.3); Blood Urea Nitrogen 21 mg/dL (9-20); Calcium 9.6 mg/dL (8.4-10.2); Carbon Dioxide 28 mmol/L (22-32); Chloride 100 mmol/L (98-107); Cholesterol 104 mg/dL (140-199); Globulin 2.5 g/dL (1.7-4.1); Glucose 254 mg/dL (80-110); HDL Cholesterol 29 mg/dL (40-60); HEMOLYSIS < 15 (0-50); LDL Cholesterol Calculated 29 mg/dL (<100); Sodium 137 mmol/L (137-145); Total Protein 6.9 g/dL (6.3-8.2); Triglycerides 231 mg/dL (35-150)
== END ==
PROVIDERS: PCP Family Medicine; Referring Provider Family Medicine; Visit Provider Family Medicine
DX: E11.65 Type 2 diabetes mellitus with hyperglycemia (principal); E78.1 Pure hyperglyceridemia; I10 Essential (primary) hypertension; I25.10 Atherosclerotic heart disease of native coronary artery without angina pectoris
CPT/HCPCS: 36415; 80053; 80061; 83036

== ENCOUNTER → 2021-10-18 08:38 | Outpatient (CLI) | payer OTHER, SELFPAY ==
[2021-10-18 10:13] LABS: Hemoglobin A1C% w Est Avg Glu 11.4 % (4.0-6.0)
[2021-10-18 10:22] LABS: Alanine Aminotransferase 29 IU/L (<50); Albumin 4.5 g/dL (3.5-5.0); Albumin Globulin Ratio 1.7 (1.0-2.8); Alkaline Phosphatase 73 U/L (38-126); Aspartate Aminotransferase 29 IU/L (17-59); BUN Creatinine Ratio 13.6 (6-22); Bilirubin Total 0.6 mg/dL (0.2-1.3); Blood Urea Nitrogen 17 mg/dL (9-20); Calcium 9.7 mg/dL (8.4-10.2); Carbon Dioxide 27 mmol/L (22-32); Chloride 101 mmol/L (98-107); Cholesterol 102 mg/dL (140-199); Estimated Glomerular Filt Rate 57.8 mL/min (>60); Globulin 2.6 g/dL (1.7-4.1); Glucose 260 mg/dL (80-110); HDL Cholesterol 26 mg/dL (40-60); HEMOLYSIS < 15 (0-50); LDL Cholesterol Calculated 16 mg/dL (<100); Potassium 4.6 mmol/L (3.4-5.1); Sodium 137 mmol/L (137-145); Total Protein 7.1 g/dL (6.3-8.2); Triglycerides 301 mg/dL (35-150)
== END ==
PROVIDERS: PCP Family Medicine; Referring Provider Family Medicine; Visit Provider Family Medicine
DX: E11.65 Type 2 diabetes mellitus with hyperglycemia (principal); I25.10 Atherosclerotic heart disease of native coronary artery without angina pectoris; I10 Essential (primary) hypertension; E78.1 Pure hyperglyceridemia
CPT/HCPCS: 36415; 80053; 80061; 83036

== ENCOUNTER → 2022-04-10 11:47 | Outpatient (CLI) | payer OTHER, SELFPAY ==
[2022-04-10 12:39] LABS: Hemoglobin A1C% w Est Avg Glu 12.8 % (4.0-6.0)
[2022-04-10 13:09] LABS: Alanine Aminotransferase 28 IU/L (<50); Albumin 4.7 g/dL (3.5-5.0); Albumin Globulin Ratio 1.5 (1.0-2.8); Alkaline Phosphatase 85 U/L (38-126); Aspartate Aminotransferase 28 IU/L (17-59); Bilirubin Total 0.8 mg/dL (0.2-1.3); Blood Urea Nitrogen 17 mg/dL (9-20); Calcium 9.1 mg/dL (8.4-10.2); Carbon Dioxide 27 mmol/L (22-32); Chloride 100 mmol/L (98-107); Estimated Glomerular Filt Rate > 60 mL/min (>60); Globulin 3.1 g/dL (1.7-4.1); Glucose 318 mg/dL (80-110); HEMOLYSIS < 15 (0-50); Potassium 4.8 mmol/L (3.4-5.1); Sodium 135 mmol/L (137-145); Total Protein 7.8 g/dL (6.3-8.2)
== END ==
PROVIDERS: PCP Pediatrics; Referring Provider Family Medicine; Visit Provider Family Medicine
DX: E11.65 Type 2 diabetes mellitus with hyperglycemia (principal)
CPT/HCPCS: 36415; 80053; 83036

== ENCOUNTER → 2022-07-23 12:14 | Outpatient (CLI) | payer OTHER, SELFPAY ==
[2022-07-23 13:47] LABS: Add Manual Diff / Slide Review NO; Basophils Absolute Auto 0 /uL (0-100); Basophils Percent Auto 0.7 % (0-2); Eosinophils Absolute Auto 300 /uL (0-450); Eosinophils Percent Auto 3.8 % (2-4); Hemoglobin 15.2 g/dL (13.5-17.5); Lymphocytes Absolute Auto 2100 /uL (1100-4500); Lymphocytes Percent Auto 30.6 % (25-40); Mean Corpuscular HGB Conc 33.7 % (30-36); Mean Corpuscular Hemoglobin 27.7 PG (26-34); Monocytes Absolute Auto 500 /uL (0-900); Monocytes Percent Auto 6.8 % (3-14); Neutrophils Absolute Auto 4100 /uL (1500-7000); Neutrophils Percent Auto 58.1 % (50-75); Platelet Count 191 X10^3/uL (150-400); Red Blood Cell Count 5.48 X10^6/uL (4.5-5.9); Red Cell Distribution Width 15.1 % (11.6-14.8)
[2022-07-23 14:29] LABS: Creatinine Urine Random 217.1 mg/dL
[2022-07-23 14:50] LABS: Microalbumi Creatinin Ratio Ur 157.9 ug/mg CR (<30); Microalbumin Urine Random 34.3 mg/dL (0-1.6)
[2022-07-23 15:08] LABS: Alanine Aminotransferase 26 IU/L (<50); Albumin 4.5 g/dL (3.5-5.0); Albumin Globulin Ratio 1.5 (1.0-2.8); Alkaline Phosphatase 81 U/L (38-126); Aspartate Aminotransferase 34 IU/L (17-59); BUN Creatinine Ratio 15.2 (6-22); Bilirubin Total 0.8 mg/dL (0.2-1.3); Blood Urea Nitrogen 17 mg/dL (9-20); Calcium 9.3 mg/dL (8.4-10.2); Carbon Dioxide 23 mmol/L (22-32); Chloride 101 mmol/L (98-107); Cholesterol 120 mg/dL (140-199); Estimated Glomerular Filt Rate > 60 mL/min (>60); Globulin 3.1 g/dL (1.7-4.1); Glucose 288 mg/dL (80-110); HDL Cholesterol 29 mg/dL (40-60); HEMOLYSIS 16 (0-50); LDL Cholesterol Calculated 35 mg/dL (<100); Potassium 4.7 mmol/L (3.4-5.1); Sodium 137 mmol/L (137-145); Total Protein 7.6 g/dL (6.3-8.2); Triglycerides 282 mg/dL (35-150)
== END ==
PROVIDERS: PCP Pediatrics; Referring Provider Family Medicine; Visit Provider Family Medicine
DX: E11.69 Type 2 diabetes mellitus with other specified complication (principal); E78.1 Pure hyperglyceridemia; E78.5 Hyperlipidemia, unspecified; E11.65 Type 2 diabetes mellitus with hyperglycemia; I10 Essential (primary) hypertension; I25.10 Atherosclerotic heart disease of native coronary artery without angina pectoris
CPT/HCPCS: 36415; 80053; 80061; 82043; 82570; 83036; 85025

== ENCOUNTER 2022-10-01 14:48 | Emergency (ER) | payer OTHER, SELFPAY ==
[2022-10-01 14:59] VITALS: BP 162/89; PULSE 91; RESP 20; TEMP 37; O2SAT 98; BMI 34.9
--- NOTE | 2022-10-01 15:03 | DI.US.S_ITS ---
PROCEDURE: US SCROTUM INDICATIONS: Left scrotal pain, swelling after a fall TECHNIQUE: Real-time scanning was performed of the scrotum and testicles, with image documentation. Color and pulse Doppler interrogation was performed of both testicles. COMPARISON: None. FINDINGS: Examination is limited secondary to scrotal wall thickening. Right: Testicle is normal in size at 5.1 x 3.5 x 2.6 cm, and homogenous in echotexture. Epididymis is normal in overall size and morphology. No hydrocele or varicoceles. There is thickening of the scrotal wall which demonstrates increased vascularity. Multiple rete testes cysts are present. Left: Testicle is normal in size at 4.7 x 3.2 x 2.5 cm, and homogeneous in echotexture. Epididymis is not well seen. There is a complex heterogeneous region with minimal vascularity is adjacent to the superior testicle spanning 15 mm x 30 mm x 17 mm. No hydrocele or varicoceles. There is thickening of the inferolateral scrotal wall which demonstrates a complex fluid collection with peripheral vascularity spanning 26 mm x 30 mm x 16 mm. Doppler: Color and pulse Doppler demonstrate normal and symmetric arterial flow in both testicles. IMPRESSION: 1. Bilateral scrotal wall thickening, suggestive of injury given history of recent fall. 2. Complex fluid collection within the left scrotal wall as well as heterogeneous region adjacent to the left superior testis. Given the history of recent fall, these findings are consistent with hemorrhage. Clinical correlation and follow-up ultrasound is recommended to exclude underlying neoplasm/infection. Dictated by: Lee Romero M.D. on 10/01/2022 at 16:19 Approved by: Lee Romero M.D. on 10/01/2022 at 16:22
--- NOTE | 2022-10-01 18:20 | PC.NURSE ---
testicle exam deferred to
[2022-10-01 18:33] LABS: Prothrombin Time 11.3 SECONDS (10.1-12.7)
[2022-10-01 18:35] LABS: PTT Partial Thromboplastin Tim 37 SECONDS (26-36)
--- NOTE | 2022-10-01 18:37 | ED.MALEGU ---
HPI - Male Genitourinary General Chief complaint: Urogenital-Male Stated complaint: Cyst on scrotum Time Seen by Provider: 10/01/22 18:04 Source: patient Mode of arrival: Ambulatory History of Present Illness HPI Narrative: 67-year-old male nonsmoker with history of coronary artery disease, hyperlipidemia and hypertension as well as diabetes presents with his in the chief complaint of severe left-sided scrotal pain since an injury 4 days ago. He states he was in his normal state of health and was out chopping wood and slipped and felt a pulling sensation in his left groin and now has pain and some purplish color adjacent to his left testicle. He states he did not make direct impact with his scrotum. He denies any prodromal symptoms such as dizziness, weakness or lightheadedness. He is had no chest pain, shortness of breath or cough. He denies nausea, vomiting or diarrhea. He is had no urinary complaints such as dysuria, frequency or urgency. his pain is worse with motion and touch. He has taken motrin with minimal relief Related Data Home Medications Medication Instructions Recorded Confirmed aspirin 81 mg tablet,delayed 81 mg PO DAILY 03/26/18 07/27/22 release (Adult Low Dose Aspirin) coenzyme Q10 75 mg capsule (Ultra 75 mg PO DAILY 10/02/18 07/27/22 CoQ10) carvedilol 6.25 mg tablet 6.25 mg PO 07/27/22 07/27/22 isosorbide mononitrate 60 mg 60 mg PO 07/27/22 07/27/22 tablet,extended release 24 hr Previous Rx's Medication Instructions Recorded Disabled Parking Pass #1 ea 08/05/19 blood-glucose meter #1 ea 01/19/22 rosuvastatin 40 mg tablet See Rx Instructions .Route 02/13/22 .COMPLEX #90 tabs blood sugar diagnostic (Blood #100 ea 07/27/22 Glucose Test strips) empagliflozin 10 mg tablet 10 mg PO DAILY #7 tabs 07/27/22 (Jardiance) empagliflozin 25 mg tablet 25 mg PO DAILY #90 tabs 07/27/22 (Jardiance) lancets 33 gauge (BD Ultra Fine #100 ea 07/27/22 Lancets) losartan 50 mg tablet See Rx Instructions .Route 07/27/22 .COMPLEX #180 tabs metformin 1,000 mg tablet See Rx Instructions .Route 07/27/22 .COMPLEX #180 tabs glimepiride 4 mg tablet See Rx Instructions .Route 08/30/22 .COMPLEX #180 tabs hydrocodone 5 mg-acetaminophen 325 1 tab PO Q4-6H PRN pain #20 tabs 10/01/22 mg tablet hydrocodone 5 mg-acetaminophen 325 1 tab PO Q4-6H PRN pain #20 tabs 10/01/22 mg tablet Allergies Allergy/AdvReac Type Severity Reaction Status Date / Time latex [LATEX] Allergy Mild LOCALIZED Verified 10/01/22 14:59 RASH Review of Systems Review of Systems Narrative: GENERAL: Denies chills, fatigue, malaise, fever, sweats. HEENT: Denies sinus pain, ear pain, sore throat, difficulty swallowing, dizziness. RESPIRATORY: Denies dyspnea, cough, wheezing, hemoptysis, sputum. CARDIOVASCULAR: Denies chest pain, palpitations, orthopnea, edema, GASTROINTESTINAL: Denies nausea, vomiting, abdominal pain, diarrhea, constipation, melena. : See HPI MUSCULOSKELETAL: denies weakness, joint pain, or bony pain SKIN: Denies rash, skin lesions, or other NEUROLOGIC: Denies weakness, headache, numbness, change in speech, confusion, seizures, incoordination. PSYCHIATRIC: No concerning psychosocial issues. 12 point review of systems is negative except for those stated above Patient History Medical History Abscess CAD (coronary artery disease) Diabetes Essential hypertension (07/29/15) HFrEF (heart failure with reduced ejection fraction) Hyperlipidemia with target LDL less than 100 (07/29/15) Hypertension Hypertriglyceridemia Inability to read medication label Ischemic heart disease due to coronary artery obstruction Mild aortic stenosis by prior echocardiogram Nocturnal hypoxemia Obstructive sleep apnea (~05/2019) Snoring (~1998) Family History Brother Diabetes mellitus Father Alcoholism Colorectal cancer Congestive heart failure Hyperlipidemia Mother Alcoholism Sister Diabetes mellitus Social History Smoking Status: Never smoker alcohol intake: never substance use type: marijuana Smoking Status: Never smoker alcohol intake frequency: holidays/special occasions only Substance Use Type: marijuana Exam Narrative Exam Narrative: GENERAL: [67] year old patient appears stated age. Well-developed patient, in mild distress. HEAD: Atraumatic. Normocephalic. EYES: Pupils equal round and reactive. Extraocular motions intact. No scleral icterus. No injection or drainage. ENT: Nose without bleeding, purulent drainage. Throat without erythema, tonsillar hypertrophy or exudate. Airway patent. NECK: Trachea midline. Non tender CARDIOVASCULAR: Regular rate and rhythm without murmurs, gallops, or rubs. RESPIRATORY: Clear to auscultation. Breath sounds equal bilaterally. No wheezes, rales, or rhonchi. GASTROINTESTINAL: Abdomen soft, non-tender, nondistended. : left scrotal tenderness, ecchymosis. No drainage. EXTREMITIES: No edema or joint tenderness. BACK: Nontender without deformity or crepitance. No flank tenderness. NEURO: AOx3. SKIN: No rash or erythema of visible areas Initial Vital Signs Initial Vital Signs: Vital Signs Temperature 98.6 F 10/01/22 14:59 Pulse Rate 91 H 10/01/22 14:59 Respiratory Rate 20 10/01/22 14:59 Blood Pressure 162/89 H 10/01/22 14:59 Pulse Oximetry 98 10/01/22 14:59 Oxygen Delivery Method 10/01/22 14:59 Course Orders Ordered: Discontinued Medications Hydrocodone Bitart/Acetaminophen (Hydrocodone/Acet 5/325 Tablet) 2 tab PO NOW ONE Stop: 10/01/22 18:52 Last Admin: 10/01/22 19:03 Dose: 2 tab Documented By: RLS Vital Signs Vital signs: Vital Signs - 8 hr 10/01/22 14:59 Temperature 98.6 F Pulse Rate 91 H Respiratory Rate 20 Blood Pressure 162/89 H Pulse Oximetry 98 Oxygen Delivery Method Room Air MDM - Male Genitourinary Lab Data Result diagrams: 10/01/22 18:15 10/01/22 18:15 Labs: Lab Results 10/01/22 10/01/22 10/01/22 Range/Units 18:15 18:15 18:15 WBC 9.9 (4.5-11.0) X10^3/uL RBC 6.22 H (4.5-5.9) X10^6/uL Hgb 17.1 (13.5-17.5) g/dL Hct 51.1 (41-53) % MCV 82.1 (80-100) fL MCH 27.5 (26-34) PG MCHC 33.5 (30-36) % RDW 14.5 (11.6-14.8) % Plt Count 228 (150-400) X10^3/uL Neut % (Auto) 61.7 (50-75) % Lymph % (Auto) 25.7 (25-40) % [place] % (Auto) 8.3 (3-14) % Eos % (Auto) 3.6 (2-4) % Baso % (Auto) 0.7 (0-2) % Neut # (Auto) 6100 (3075-2592) /uL Lymph # (Auto) 2600 (0319-7955) /uL [place] # (Auto) 800 (0-900) /uL Eos # (Auto) 400 (0-450) /uL Baso # (Auto) 100 (0-100) /uL PT 11.3 (10.1-12.7) SECONDS INR 1.0 (0.9-1.3) APTT 37 H (26-36) SECONDS Sodium 141 (137-145) mmol/L Potassium 4.2 (3.4-5.1) mmol/L Chloride 100 (98-107) mmol/L Carbon Dioxide 24 (22-32) mmol/L BUN 15 (9-20) mg/dL Creatinine 0.99 (0.66-1.25) mg/dL Estimated GFR > 60 (>60) mL/min BUN/Creatinine Ratio 15.2 (6-22) Glucose 140 H (80-110) mg/dL Calcium 9.7 (8.4-10.2) mg/dL Total Bilirubin 0.7 (0.2-1.3) mg/dL AST 26 (17-59) IU/L ALT 28 (<50) IU/L Alkaline Phosphatase 91 (38-126) U/L Total Protein 9.1 H (6.3-8.2) g/dL Albumin 5.1 H (3.5-5.0) g/dL Globulin 4.0 (1.7-4.1) g/dL Albumin/Globulin Ratio 1.3 (1.0-2.8) Imaging Data Scrotal US: Radiologist's Impression: [address] [address] Ultrasound Report Signed Patient: Juan Carlos Nascimento MR#: [id number] : 1955 Acct:[id number] Age/Sex: 67 / M Date of Service: 10/01/22 Loc: ED Accession Number: [id number] ?? Procedure: US scrotum Ordering Provider: Guillermo Segundo D.O. PROCEDURE:? US SCROTUM ? INDICATIONS:? Left scrotal pain, swelling after a fall ? TECHNIQUE:? Real-time scanning was performed of the scrotum and testicles, with image documentation.? Color and pulse Doppler interrogation was performed of both testicles.? ? COMPARISON:? None. ? FINDINGS:? Examination is limited secondary to scrotal wall thickening. ? Right:? Testicle is normal in size at 5.1 x 3.5 x 2.6 cm, and homogenous in echotexture.? Epididymis is normal in overall size and morphology.? No hydrocele or varicoceles.? There is thickening of the scrotal wall which demonstrates increased vascularity.? Multiple rete testes cysts are present. ? Left:? Testicle is normal in size at 4.7 x 3.2 x 2.5 cm, and homogeneous in echotexture.? Epididymis is not well seen.? There is a complex heterogeneous region with minimal vascularity is adjacent to the superior testicle spanning 15 mm x 30 mm x 17 mm. No hydrocele or varicoceles.? There is thickening of the inferolateral scrotal wall which demonstrates a complex fluid collection with peripheral vascularity spanning 26 mm x 30 mm x 16 mm. ? Doppler:? Color and pulse Doppler demonstrate normal and symmetric arterial flow in both testicles.? ? IMPRESSION:? 1. Bilateral scrotal wall thickening, suggestive of injury given history of recent fall. 2. Complex fluid collection within the left scrotal wall as well as heterogeneous region adjacent to the left superior testis.? Given the history of recent fall, these findings are consistent with hemorrhage.? Clinical correlation and follow-up ultrasound is recommended to exclude underlying neoplasm/infection.? ? ? Dictated by: Lee Romero M.D. on 10/01/2022 at 16:19 ? ? Approved by: Lee Romero M.D. on 10/01/2022 at 16:22 ? MDM Narrative Medical decision making narrative: initial Rx for hydrocodone sent to the [facility]. Re-sent to [facility]. Multiple calls attempted to [facility] to Cancel Rx. Discharge Plan Departure Patient Disposition: Home Clinical Impression: Scrotal hematoma Instructions: DI for Hematoma (Bruise) Activity Restrictions/Additional Instructions: *You have been diagnosed with [ scrotal hemorrhage] *What to do: *Please continue to take your regular medications as directed. [x ] New medication prescriptions sent to your pharmacy: [[facility] in [place] ] [ ] New medication written as a paper prescription [ ] No new medications given *Please follow up with Dr. Koehler or Dr. King with Urology in 2-3 days, call for an appointment. Let them know you were seen in the Emergency Department and that we ask that you be seen in follow up. We will electronically transmit a record of today's note *Return to Emergency Department if you should have any new, worsening or concerning symptoms, such as [fever greater than 101 F, shaking chills, worsening pain, persistent vomiting or other bothersome symptoms] You have been prescribed a short course of narcotic medications. These are potentially dangerous and addictive medications that should be used carefully. While on these medications you cannot drive or operate heavy machinery. Additionally, you cannot sign legal documents or perform any duties such as this. Many people get constipated on narcotic medications so it would be advisable to discuss stool softeners with the pharmacist when you pick up and delivery driver your prescription. Please understand that we cannot provide further refills of narcotics or controlled substances through the ED and your pain management will need to be through your Primary Care Provider Prescriptions: New hydrocodone-acetaminophen 5-325 mg tablet 1 tab PO Q4-6H PRN (Reason: pain) Qty: 20 0RF hydrocodone-acetaminophen 5-325 mg tablet 1 tab PO Q4-6H PRN (Reason: pain) Qty: 20 0RF No Action (DME) Disabled Parking Pass Qty: 1 0RF Rx Instructions: Walking severely limited due to arthritic, neurological, or orthopedic condition. (DME) blood-glucose meter Kit See Rx Instructions .ROUTE .MEDSUPPLY Qty: 1 0RF Rx Instructions: Use to test blood glucose once daily rosuvastatin 40 mg tablet See Rx Instructions .ROUTE .COMPLEX Qty: 90 3RF Dose Instruction: TAKE ONE TABLET BY MOUTH ONCE DAILY Rx Instructions: TAKE ONE TABLET BY MOUTH ONCE DAILY glimepiride 4 mg tablet See Rx Instructions .ROUTE .COMPLEX Qty: 180 3RF Dose Instruction: TAKE TWO TABLETS BY MOUTH EVERY MORNING Rx Instructions: TAKE TWO TABLETS BY MOUTH EVERY MORNING aspirin [Adult Low Dose Aspirin] 81 mg tablet,delayed release (DR/EC) 81 mg PO DAILY coenzyme Q10 [Ultra CoQ10] 75 mg capsule 75 mg PO DAILY Jardiance 10 mg tablet 10 mg PO DAILY Qty: 7 0RF Jardiance 25 mg tablet 25 mg PO DAILY Qty: 90 0RF Rx Instructions: start after 10mg pill is complete metformin 1,000 mg tablet See Rx Instructions .ROUTE .COMPLEX Qty: 180 3RF Dose Instruction: TAKE ONE TABLET BY MOUTH TWICE DAILY Rx Instructions: TAKE ONE TABLET BY MOUTH TWICE DAILY losartan 50 mg tablet See Rx Instructions .ROUTE .COMPLEX Qty: 180 3RF Dose Instruction: TAKE ONE TABLET BY MOUTH TWICE DAILY Rx Instructions: TAKE ONE TABLET BY MOUTH TWICE DAILY carvedilol 6.25 mg tablet 6.25 mg PO isosorbide mononitrate 60 mg tablet extended release 24 hr 60 mg PO (DME) Blood Glucose Test Strip See Rx Instructions .ROUTE .MEDSUPPLY Qty: 100 3RF Rx Instructions: Use to test blood glucose once daily. (DME) lancets [BD Ultra Fine Lancets] 33 gauge misc See Rx Instructions .ROUTE .MEDSUPPLY Qty: 100 0RF Rx Instructions: Use to test blood glucose once daily Referrals: Damon Estrada MD [Primary Care Provider] - Molly Koehler MD [Physician] - Visit Report Forms: Patient Portal/API
[2022-10-01 18:40] LABS: Alanine Aminotransferase 28 IU/L (<50); Albumin 5.1 g/dL (3.5-5.0); Albumin Globulin Ratio 1.3 (1.0-2.8); Alkaline Phosphatase 91 U/L (38-126); Aspartate Aminotransferase 26 IU/L (17-59); BUN Creatinine Ratio 15.2 (6-22); Bilirubin Total 0.7 mg/dL (0.2-1.3); Blood Urea Nitrogen 15 mg/dL (9-20); Calcium 9.7 mg/dL (8.4-10.2); Carbon Dioxide 24 mmol/L (22-32); Chloride 100 mmol/L (98-107); Estimated Glomerular Filt Rate > 60 mL/min (>60); Glucose 140 mg/dL (80-110); HEMOLYSIS < 15 (0-50); Potassium 4.2 mmol/L (3.4-5.1); Sodium 141 mmol/L (137-145); Total Protein 9.1 g/dL (6.3-8.2)
[2022-10-01 18:52] LABS: Add Manual Diff / Slide Review NO; Basophils Absolute Auto 100 /uL (0-100); Basophils Percent Auto 0.7 % (0-2); Eosinophils Absolute Auto 400 /uL (0-450); Eosinophils Percent Auto 3.6 % (2-4); Hematocrit 51.1 % (41-53); Hemoglobin 17.1 g/dL (13.5-17.5); Lymphocytes Absolute Auto 2600 /uL (1100-4500); Lymphocytes Percent Auto 25.7 % (25-40); Mean Corpuscular HGB Conc 33.5 % (30-36); Mean Corpuscular Hemoglobin 27.5 PG (26-34); Mean Corpuscular Volume 82.1 fL (80-100); Monocytes Absolute Auto 800 /uL (0-900); Monocytes Percent Auto 8.3 % (3-14); Neutrophils Absolute Auto 6100 /uL (1500-7000); Neutrophils Percent Auto 61.7 % (50-75); Platelet Count 228 X10^3/uL (150-400); Red Blood Cell Count 6.22 X10^6/uL (4.5-5.9); Red Cell Distribution Width 14.5 % (11.6-14.8); White Blood Cell Count 9.9 X10^3/uL (4.5-11.0)
[2022-10-01] MEDS: HYDROCODONE/ACET 5/325 TABLET 2 TAB PO (19:03)
[2022-10-01 19:15] VITALS: BP 135/90; PULSE 99; RESP 18; O2SAT 97
== END 2022-10-01 19:22 | disposition home or self-care (01) ==
PROVIDERS: Student in an Organized Health Care Education/Training Program; Emergency Provider Emergency Medicine; PCP Family Medicine
DX: S30.22XA Contusion of scrotum and testes, initial encounter (principal); W18.30XA Fall on same level, unspecified, initial encounter
CPT/HCPCS: 36415; 76870; 80053; 85025; 85610; 85730; 99284

== ENCOUNTER 2022-10-02 14:22 | Emergency (ER) | payer OTHER, SELFPAY ==
[2022-10-02 15:15] VITALS: BP 154/84; PULSE 96; RESP 18; TEMP 36.3; O2SAT 99; BMI 35.1
--- NOTE | 2022-10-02 15:32 | ED_ITS ---
HPI - General Adult General Chief complaint: Urogenital-Male Stated complaint: Testicular Pain Time Seen by Provider: 10/02/22 15:23 Source: patient Mode of arrival: Ambulatory History of Present Illness HPI narrative: 67-year-old male. Was here in the emergency department yesterday for evaluation of swelling to his left testicle. This occurred after he slipped on some ice. He did not hit his testicle and anything it was just a very sharp separation of his legs. Had an ultrasound performed which showed hematoma/hemorrhage. Was discharged home with pain medication. Since that time he has had continued discomfort. No urinary symptoms. He feels like the swelling has enlarged. No other new symptoms. Related Data Home Medications Medication Instructions Recorded Confirmed aspirin 81 mg tablet,delayed 81 mg PO DAILY 03/26/18 07/27/22 release (Adult Low Dose Aspirin) coenzyme Q10 75 mg capsule (Ultra 75 mg PO DAILY 10/02/18 07/27/22 CoQ10) carvedilol 6.25 mg tablet 6.25 mg PO 07/27/22 07/27/22 isosorbide mononitrate 60 mg 60 mg PO 07/27/22 07/27/22 tablet,extended release 24 hr Previous Rx's Medication Instructions Recorded Disabled Parking Pass #1 ea 08/05/19 blood-glucose meter #1 ea 01/19/22 rosuvastatin 40 mg tablet See Rx Instructions .Route 02/13/22 .COMPLEX #90 tabs blood sugar diagnostic (Blood #100 ea 07/27/22 Glucose Test strips) empagliflozin 10 mg tablet 10 mg PO DAILY #7 tabs 07/27/22 (Jardiance) empagliflozin 25 mg tablet 25 mg PO DAILY #90 tabs 07/27/22 (Jardiance) lancets 33 gauge (BD Ultra Fine #100 ea 07/27/22 Lancets) losartan 50 mg tablet See Rx Instructions .Route 07/27/22 .COMPLEX #180 tabs metformin 1,000 mg tablet See Rx Instructions .Route 07/27/22 .COMPLEX #180 tabs glimepiride 4 mg tablet See Rx Instructions .Route 08/30/22 .COMPLEX #180 tabs hydrocodone 5 mg-acetaminophen 325 1 tab PO Q4-6H PRN pain #20 tabs 10/01/22 mg tablet hydrocodone 5 mg-acetaminophen 325 1 tab PO Q4-6H PRN pain #20 tabs 10/01/22 mg tablet oxycodone-acetaminophen 5 mg-325 1 tab PO Q4-6H PRN pain #20 tabs 10/02/22 mg tablet (Percocet) Allergies Allergy/AdvReac Type Severity Reaction Status Date / Time latex [LATEX] Allergy Mild LOCALIZED Verified 10/02/22 15:15 RASH Review of Systems Gastrointestinal Gastrointestinal: Reports system reviewed and no additional complaints, except as documented Genitourinary Genitourinary: Reports system reviewed and no additional complaints, except as documented Integumentary/Breasts Skin/Breast: Reports system reviewed and no additional complaints, except as documented Neurologic Neurologic: Reports system reviewed and no additional complaints, except as documented Patient History Medical History Abscess CAD (coronary artery disease) Diabetes Essential hypertension (07/29/15) HFrEF (heart failure with reduced ejection fraction) Hyperlipidemia with target LDL less than 100 (07/29/15) Hypertension Hypertriglyceridemia Inability to read medication label Ischemic heart disease due to coronary artery obstruction Mild aortic stenosis by prior echocardiogram Nocturnal hypoxemia Obstructive sleep apnea (~05/2019) Snoring (~1998) Family History Brother Diabetes mellitus Father Alcoholism Colorectal cancer Congestive heart failure Hyperlipidemia Mother Alcoholism Sister Diabetes mellitus Social History Smoking Status: Never smoker alcohol intake: never substance use type: marijuana Smoking Status: Never smoker alcohol intake frequency: holidays/special occasions only Substance Use Type: marijuana Exam Initial Vital Signs Initial Vital Signs: Vital Signs Temperature 97.4 F L 10/02/22 15:15 Pulse Rate 96 H 10/02/22 15:15 Respiratory Rate 18 10/02/22 15:15 Blood Pressure 154/84 H 10/02/22 15:15 Pulse Oximetry 99 10/02/22 15:15 Oxygen Delivery Method 10/02/22 15:15 Const General: cooperative HENMT Head: normal to inspection and normocephalic GI Inspection: normal to inspection Other: Swelling with redness left-sided hemiscrotum. No changes with penis. Skin Other: Swelling redness left hemiscrotum Neuro General: patient alert, patient awake and moves all extremities Course Vital Signs Vital signs: Vital Signs - 8 hr 10/02/22 15:15 Temperature 97.4 F L Pulse Rate 96 H Respiratory Rate 18 Blood Pressure 154/84 H Pulse Oximetry 99 Oxygen Delivery Method Room Air Medical Decision Making MDM Narrative Medical decision making narrative: Discussed the case with Dr. King on-call with urology who evaluated the ultrasound from yesterday. He recommended the patient stop the aspirin. He also recommended supportive clothing and ice. I discussed this with the patient as well. He expressed understanding. It appears that the hydrocodone that he was sent home with does not seem to be helping his discomfort so we will switch him to oxycodone. Will have him continue to follow-up with urology once his insurance has approved. He was given return precautions. He expressed understanding and agreement. Discharge Plan Departure Patient Disposition: Home Clinical Impression: Scrotal hematoma Activity Restrictions/Additional Instructions: Do recommend that for the time being you stop your aspirin. Also recommend you wear supportive clothing and also use ice. Do not be surprised if the redness starts to spread like we discussed. A new prescription for different pain medication was sent to [facility] per your request. Please take it as directed. Also recommend that you continue with follow-up with Urology. Return to the emergency department for any new or worsening symptoms. Prescriptions: New oxycodone-acetaminophen [Percocet] 5-325 mg tablet 1 tab PO Q4-6H PRN (Reason: pain) Qty: 20 0RF No Action (DME) Disabled Parking Pass Qty: 1 0RF Rx Instructions: Walking severely limited due to arthritic, neurological, or orthopedic condition. (DME) blood-glucose meter Kit See Rx Instructions .ROUTE .MEDSUPPLY Qty: 1 0RF Rx Instructions: Use to test blood glucose once daily rosuvastatin 40 mg tablet See Rx Instructions .ROUTE .COMPLEX Qty: 90 3RF Dose Instruction: TAKE ONE TABLET BY MOUTH ONCE DAILY Rx Instructions: TAKE ONE TABLET BY MOUTH ONCE DAILY glimepiride 4 mg tablet See Rx Instructions .ROUTE .COMPLEX Qty: 180 3RF Dose Instruction: TAKE TWO TABLETS BY MOUTH EVERY MORNING Rx Instructions: TAKE TWO TABLETS BY MOUTH EVERY MORNING aspirin [Adult Low Dose Aspirin] 81 mg tablet,delayed release (DR/EC) 81 mg PO DAILY coenzyme Q10 [Ultra CoQ10] 75 mg capsule 75 mg PO DAILY Jardiance 10 mg tablet 10 mg PO DAILY Qty: 7 0RF Jardiance 25 mg tablet 25 mg PO DAILY Qty: 90 0RF Rx Instructions: start after 10mg pill is complete metformin 1,000 mg tablet See Rx Instructions .ROUTE .COMPLEX Qty: 180 3RF Dose Instruction: TAKE ONE TABLET BY MOUTH TWICE DAILY Rx Instructions: TAKE ONE TABLET BY MOUTH TWICE DAILY losartan 50 mg tablet See Rx Instructions .ROUTE .COMPLEX Qty: 180 3RF Dose Instruction: TAKE ONE TABLET BY MOUTH TWICE DAILY Rx Instructions: TAKE ONE TABLET BY MOUTH TWICE DAILY carvedilol 6.25 mg tablet 6.25 mg PO isosorbide mononitrate 60 mg tablet extended release 24 hr 60 mg PO (DME) Blood Glucose Test Strip See Rx Instructions .ROUTE .MEDSUPPLY Qty: 100 3RF Rx Instructions: Use to test blood glucose once daily. (DME) lancets [BD Ultra Fine Lancets] 33 gauge misc See Rx Instructions .ROUTE .MEDSUPPLY Qty: 100 0RF Rx Instructions: Use to test blood glucose once daily hydrocodone-acetaminophen 5-325 mg tablet 1 tab PO Q4-6H PRN (Reason: pain) Qty: 20 0RF hydrocodone-acetaminophen 5-325 mg tablet 1 tab PO Q4-6H PRN (Reason: pain) Qty: 20 0RF Referrals: Damon Estrada MD [Primary Care Provider] -
[2022-10-02 16:24] VITALS: BP 137/88; PULSE 105; O2SAT 99
== END 2022-10-02 16:26 | disposition home or self-care (01) ==
PROVIDERS: Emergency Provider Emergency Medicine; PCP Family Medicine
DX: S30.22XA Contusion of scrotum and testes, initial encounter (principal)
CPT/HCPCS: 99281

== ENCOUNTER → 2022-12-27 09:33 | Outpatient (CLI) | payer OTHER, SELFPAY ==
[2022-12-27 11:42] LABS: Mean Corpuscular Hemoglobin 21.7 PG (26-34); Platelet Count 247 X10^3/uL (150-400); White Blood Cell Count 6.1 X10^3/uL (4.5-11.0)
[2022-12-27 11:51] LABS: Hematocrit 38.5 % (41-53); Hemoglobin 12.1 g/dL (13.5-17.5); Mean Corpuscular HGB Conc 31.6 % (30-36); Red Blood Cell Count 5.59 X10^6/uL (4.5-5.9); Red Cell Distribution Width 20.5 % (11.6-14.8)
[2022-12-27 11:52] LABS: Mean Corpuscular Volume 68.8 fL (80-100)
[2022-12-27 12:10] LABS: Alanine Aminotransferase 29 IU/L (<50); Albumin 4.6 g/dL (3.5-5.0); Albumin Globulin Ratio 1.5 (1.0-2.8); Alkaline Phosphatase 85 U/L (38-126); Aspartate Aminotransferase 30 IU/L (17-59); BUN Creatinine Ratio 26.3 (6-22); Bilirubin Total 0.4 mg/dL (0.2-1.3); Blood Urea Nitrogen 25 mg/dL (9-20); Calcium 9.1 mg/dL (8.4-10.2); Carbon Dioxide 26 mmol/L (22-32); Chloride 102 mmol/L (98-107); Estimated Glomerular Filt Rate > 60 mL/min (>60); Globulin 3.1 g/dL (1.7-4.1); Glucose 193 mg/dL (80-110); HEMOLYSIS < 15 (0-50); Potassium 4.7 mmol/L (3.4-5.1); Sodium 138 mmol/L (137-145); Total Protein 7.7 g/dL (6.3-8.2)
== END ==
PROVIDERS: PCP Family Medicine; Referring Provider Nurse Practitioner; Visit Provider Nurse Practitioner
DX: D64.9 Anemia, unspecified (principal); I25.5 Ischemic cardiomyopathy
CPT/HCPCS: 36415; 80053; 85027

== ENCOUNTER → 2023-06-03 08:16 | Outpatient (CLI) | payer OTHER, SELFPAY ==
[2023-06-03 09:54] LABS: Add Manual Diff / Slide Review NO; Basophils Absolute Auto 100 /uL (0-100); Basophils Percent Auto 0.9 % (0-2); Eosinophils Absolute Auto 300 /uL (0-450); Eosinophils Percent Auto 4.5 % (2-4); Hematocrit 44.4 % (41-53); Hemoglobin 14.7 g/dL (13.5-17.5); Lymphocytes Absolute Auto 2100 /uL (1100-4500); Lymphocytes Percent Auto 33.3 % (25-40); Mean Corpuscular Hemoglobin 25.4 PG (26-34); Monocytes Absolute Auto 500 /uL (0-900); Monocytes Percent Auto 8.9 % (3-14); Neutrophils Absolute Auto 3300 /uL (1500-7000); Neutrophils Percent Auto 52.4 % (50-75); Platelet Count 192 X10^3/uL (150-400); Red Blood Cell Count 5.77 X10^6/uL (4.5-5.9); Red Cell Distribution Width 17.6 % (11.6-14.8); White Blood Cell Count 6.2 X10^3/uL (4.5-11.0)
[2023-06-03 10:22] LABS: HEMOLYSIS < 15 (0-50); Iron 54 ug/dL (49-181)
[2023-06-03 10:29] LABS: Alanine Aminotransferase 31 IU/L (<50); Albumin 4.3 g/dL (3.5-5.0); Albumin Globulin Ratio 1.5 (1.0-2.8); Alkaline Phosphatase 84 U/L (38-126); Aspartate Aminotransferase 29 IU/L (17-59); BUN Creatinine Ratio 23.3 (6-22); Bilirubin Total 0.6 mg/dL (0.2-1.3); Blood Urea Nitrogen 27 mg/dL (9-20); Calcium 9.3 mg/dL (8.4-10.2); Carbon Dioxide 28 mmol/L (22-32); Chloride 100 mmol/L (98-107); Cholesterol 115 mg/dL (140-199); Estimated Glomerular Filt Rate > 60 mL/min (>60); Globulin 2.9 g/dL (1.7-4.1); Glucose 161 mg/dL (80-110); HDL Cholesterol 30 mg/dL (40-60); HEMOLYSIS < 15 (0-50); LDL Cholesterol Calculated 46 mg/dL (<100); Potassium 4.6 mmol/L (3.4-5.1); Sodium 136 mmol/L (137-145); Total Protein 7.2 g/dL (6.3-8.2); Triglycerides 197 mg/dL (35-150)
[2023-06-03 10:32] LABS: Percent Iron Saturation 12 % (20-50); Total Iron Binding Capacity 450 ug/dL (261-462); Transferrin 339 mg/dL (206-381)
[2023-06-03 10:58] LABS: Ferritin 14 ng/mL (18-464)
[2023-06-03 11:10] LABS: Creatinine Urine Random 118.5 mg/dL
[2023-06-03 11:13] LABS: Microalbumi Creatinin Ratio Ur 65.8 ug/mg CR (<30); Microalbumin Urine Random 7.8 mg/dL (0-1.6)
[2023-06-04 06:06] LABS: x Labcorp Estim. Avg Glu (eAG) 280 mg/dL (.); x Labcorp Hemoglobin A1c 11.4 % (4.8-5.6)
== END ==
PROVIDERS: PCP Family Medicine; Referring Provider Family Medicine; Visit Provider Family Medicine
DX: E11.65 Type 2 diabetes mellitus with hyperglycemia (principal); E11.69 Type 2 diabetes mellitus with other specified complication; E78.1 Pure hyperglyceridemia; E78.5 Hyperlipidemia, unspecified; I10 Essential (primary) hypertension; I35.0 Nonrheumatic aortic (valve) stenosis
CPT/HCPCS: 36415; 80053; 80061; 82043; 82570; 82728; 83036; 83540; 83550; 85025

== ENCOUNTER → 2023-11-15 12:10 | Outpatient (CLI) | payer OTHER, SELFPAY ==
[2023-11-15 13:34] LABS: Hemoglobin A1C% w Est Avg Glu 11.2 % (4.0-6.0)
[2023-11-15 14:11] LABS: Prostate Specific Antigen Scrn 1.09 ng/mL (0.1-4.0)
== END ==
PROVIDERS: PCP Family Medicine; Referring Provider Family Medicine; Visit Provider Family Medicine
DX: E11.65 Type 2 diabetes mellitus with hyperglycemia (principal); Z12.5 Encounter for screening for malignant neoplasm of prostate; E11.69 Type 2 diabetes mellitus with other specified complication; E78.5 Hyperlipidemia, unspecified
CPT/HCPCS: 36415; 83036; G0103

== ENCOUNTER → 2024-03-02 09:05 | Outpatient (CLI) | payer OTHER, SELFPAY ==
[2024-03-02 10:56] LABS: Hemoglobin A1C% w Est Avg Glu 11.8 % (4.0-6.0)
[2024-03-02 11:10] LABS: Alanine Aminotransferase 28 IU/L (<50); Albumin 4.8 g/dL (3.5-5.0); Albumin Globulin Ratio 1.7 (1.0-2.8); Alkaline Phosphatase 70 U/L (38-126); Aspartate Aminotransferase 28 IU/L (17-59); BUN Creatinine Ratio 23.3 (6-22); Bilirubin Total 0.6 mg/dL (0.2-1.3); Blood Urea Nitrogen 24 mg/dL (9-20); Calcium 9.5 mg/dL (8.4-10.2); Carbon Dioxide 24 mmol/L (22-32); Chloride 107 mmol/L (98-107); Estimated Glomerular Filt Rate > 60 mL/min (>60); Globulin 2.9 g/dL (1.7-4.1); Glucose 260 mg/dL (80-110); HEMOLYSIS < 15 (0-50); Potassium 4.5 mmol/L (3.4-5.1); Sodium 138 mmol/L (137-145); Total Protein 7.7 g/dL (6.3-8.2)
== END ==
PROVIDERS: PCP Family Medicine; Referring Provider Family Medicine; Visit Provider Family Medicine
DX: I25.10 Atherosclerotic heart disease of native coronary artery without angina pectoris (principal); E11.65 Type 2 diabetes mellitus with hyperglycemia; E78.1 Pure hyperglyceridemia
CPT/HCPCS: 36415; 80053; 83036

== ENCOUNTER → 2024-05-06 09:02 | Outpatient (CLI) | payer OTHER, SELFPAY ==
--- NOTE | 2024-06-25 16:35 | DIAB.MNT ---
Initial Diabetes Medical Nutrition Therapy Assessment Name: Juan Carlos Nascimento Date: 05/06/24 Time: [id number] Dx: Type II Diabetes Provider: Natalie Campbell Learning Style: Mati Rangel presents for initial visit with , Deepthi. Diagnosed in 2007. No previous Dm education. Main barrier to learning is literacy. States he is illiterate and does not use any technology. Endorses FH of Dm and bilateral LE amputation. Also endorses Dm hx with mother. Today he tells me he is adamantly against any additional Dm medications, including insulin. Last two hgA1c over 11%. Had a very poor experience with Jardiance per report. Experienced severe scrotal infection, and as a result will not try any additional DM medication. Also will not try CGM sample. Has questions today about sugar substitutes and nutrition. Reports he does not love vegetables. is concerned about his diabetes and seems to support insulin after extensive discussion about limited side effects with insulin and the potential for severe complications with current hgA1c >11%. Andrés, however does not agree at this time, though is willing to give more thought to insulin before our next visit. Diet Recall: 2-3p: leftovers, steak and salad OR eggs x 6 and coffee with 2% milk and sf syrup Often will eat 1x per day. Other proteins include shrimp, fish, chicken or burger belén. Likes broccoli with cheese and brussel sprouts Anthropometrics: Ht: 5'11 Wt: 253# Physical Activity: None Self-Monitoring Blood Glucose: None Diabetes Medications: 1000 mg Metformin BID 4mg Glimepiride Pertinent Labs: HgA1c: 11.2% 10/2023 11.8% 02/2024 Past Medical History: (Last Reviewed 10/02/22 @ 15:35 by Guillermo Segundo DO) Abscess CAD (coronary artery disease) Diabetes Essential hypertension (07/29/15) HFrEF (heart failure with reduced ejection fraction) Hyperlipidemia with target LDL less than 100 (07/29/15) Hypertension Hypertriglyceridemia Inability to read medication label Ischemic heart disease due to coronary artery obstruction 2 stents placed; SUNIL, other Mild aortic stenosis by prior echocardiogram Nocturnal hypoxemia Obstructive sleep apnea (~05/2019) Unable to tolerate cpap, Severe: AHI: 82.7, SpO2: 77% Snoring (~1998) Nutrition Rx: Very low carb diet (due to state of BG and current feelings about medications, advised very low carb diet at this time, which he already seems to follow. Would usually rec 45g CHO at meals if willing to try DM medications). Nutrition Diagnosis: - Food and nutrition knowledge deficit r/t no previous MNT aeb pt report - Physical inactivity r/t stage of change aeb pt report Intervention: This participant was very receptive. Provided appropriate educational handouts. Discussed the following topics: Completed intake assessment. Discussed barriers to care. Pathophysiology of T2DM and risk for complications HgA1c, its correlation to blood glucose numbers, and rationale for goal Importance of self-monitoring and option for CGM sample declined Plate Method, impact of macronutrients on blood sugar Recommended servings for carbohydrates at meals and snacks Heart health nutrition Strategies for adding veggies he likes Role of physical activity and BG Medication management: insulin therapy, minimal SE, potential benefits given h/o med SE and hyperglycemia Created SMART goals for patient self-care and success. Goals: Consider insulin therapy Add veggies 3x per week Follow-up: [facility] follow-up in 2-3 weeks Marjorie Grajeda RDN, [facility] Certified Diabetes Care and Front End Web Designer P: [phone] Thank you for this referral
== END ==
PROVIDERS: PCP Family Medicine; Referring Provider Family Medicine
DX: E11.9 Type 2 diabetes mellitus without complications (principal); Z71.3 Dietary counseling and surveillance
CPT/HCPCS: 97802

== ENCOUNTER → 2024-05-28 08:44 | Outpatient (CLI) | payer OTHER, SELFPAY ==
--- NOTE | 2024-07-21 07:11 | DIAB.FU ---
Follow-up Diabetes Education Assessment Name: Juan Carlos Nascimento Date: 05/28/24 Time: [id number] Dx: Type II Diabetes Juan Carlos presents for follow-up visit. Diagnosed in 2007. Main barrier to learning is literacy. States he is illiterate and does not use any technology. Endorses FH of Dm and bilateral LE amputation. Also endorses Dm hx with mother. Today he tells me his did not want to attend today, he suspects because she may not agree with his choice to not consider DM medication. Last visit we discussed insulin in depth, he states he is still adamantly against adding additional DM meds, despite understanding his stage of DM and risk of complications. States he has considered insulin and will continue to think about this, but not open to this currently. Reports he has had a lifelong struggle with literacy. Feels unsupported in trying to learn to read. Feels at this point it is too late for him, and reports feeling discouraged by family. Endorses a number of changes in his life when his son unexpectedly. This includes no longer having intimacy with , which seems to impact quality of life. Though does note he supports his emotionally in continued grief. States he has added more veggies during the week, three days per week. Anthropometrics: Ht: 5'11 Wt: 253# last visit Physical Activity: None. Physical barrier. not open at this time to UE exercises. Self-Monitoring Blood Glucose: None Diabetes Medications: 1000 mg Metformin BID 4mg Glimepiride Pertinent Labs: HgA1c: 11.2% 10/2023 11.8% 02/2024 Past Medical History: (Last Reviewed 10/02/22 @ 15:35 by Guillermo Segundo DO) Abscess CAD (coronary artery disease) Diabetes Essential hypertension (07/29/15) HFrEF (heart failure with reduced ejection fraction) Hyperlipidemia with target LDL less than 100 (07/29/15) Hypertension Hypertriglyceridemia Inability to read medication label Ischemic heart disease due to coronary artery obstruction 2 stents placed; SUNIL, other Mild aortic stenosis by prior echocardiogram Nocturnal hypoxemia Obstructive sleep apnea (~05/2019) Unable to tolerate cpap, Severe: AHI: 82.7, SpO2: 77% Snoring (~1998) Intervention: This participant was very receptive. Provided appropriate educational handouts. Discussed the following topics: Discussed barriers to self care, including literacy. Encouraged self efficacy with goal of literacy Revisited discussion about diabetes medications and urgency given h/o elevated hgA1c and risk for complications Reviewed limited SE with insulin therapy and benefits of insulin use Discussed quality of life and provided supportive listening Commended pt on veggie increases in diet Created SMART goals for patient self-care and success. Goals: Consider insulin therapy- continued Add veggies 3x per week- met Follow-up: [facility] follow-up scheduled for 2 months due to pt leaving for [place]. Marjorie Grajeda RDN, [facility] [place][NOTE 2] Certified Diabetes Care and [employer] P: [phone] Thank you for this referral
== END ==
PROVIDERS: PCP Family Medicine; Referring Provider Family Medicine
DX: E11.9 Type 2 diabetes mellitus without complications (principal); Z71.3 Dietary counseling and surveillance
CPT/HCPCS: G0108

== ENCOUNTER → 2024-08-20 09:38 | Outpatient (CLI) | payer OTHER, SELFPAY ==
[2024-08-20 12:12] LABS: Add Manual Diff / Slide Review NO; Basophils Absolute Auto 100 /uL (0-100); Basophils Percent Auto 1.2 % (0-2); Eosinophils Absolute Auto 400 /uL (0-450); Eosinophils Percent Auto 6.2 % (2-4); Hematocrit 47.4 % (41-53); Hemoglobin 15.9 g/dL (13.5-17.5); Lymphocytes Absolute Auto 2100 /uL (1100-4500); Lymphocytes Percent Auto 29.6 % (25-40); Mean Corpuscular HGB Conc 33.6 % (30-36); Mean Corpuscular Hemoglobin 28.3 PG (26-34); Mean Corpuscular Volume 84.1 fL (80-100); Monocytes Absolute Auto 500 /uL (0-900); Monocytes Percent Auto 7.4 % (3-14); Neutrophils Absolute Auto 4000 /uL (1500-7000); Neutrophils Percent Auto 55.6 % (50-75); Platelet Count 185 X10^3/uL (150-400); Red Blood Cell Count 5.63 X10^6/uL (4.5-5.9); Red Cell Distribution Width 14.4 % (11.6-14.8); White Blood Cell Count 7.2 X10^3/uL (4.5-11.0)
[2024-08-20 12:14] LABS: Hemoglobin A1C% w Est Avg Glu 11.6 % (4.0-6.0)
[2024-08-20 12:56] LABS: Alanine Aminotransferase 26 IU/L (<50); Albumin 4.5 g/dL (3.5-5.0); Albumin Globulin Ratio 1.7 (1.0-2.8); Alkaline Phosphatase 83 U/L (38-126); Aspartate Aminotransferase 29 IU/L (17-59); BUN Creatinine Ratio 18.7 (6-22); Bilirubin Total 0.7 mg/dL (0.2-1.3); Blood Urea Nitrogen 20 mg/dL (9-20); Calcium 9.5 mg/dL (8.4-10.2); Carbon Dioxide 27 mmol/L (22-32); Chloride 100 mmol/L (98-107); Cholesterol 113 mg/dL (140-199); Estimated Glomerular Filt Rate > 60 mL/min (>60); Globulin 2.6 g/dL (1.7-4.1); Glucose 245 mg/dL (80-110); HDL Cholesterol 28 mg/dL (40-60); HEMOLYSIS < 15 (0-50); LDL Cholesterol Calculated 43 mg/dL (<100); Potassium 4.9 mmol/L (3.4-5.1); Sodium 134 mmol/L (137-145); Total Protein 7.1 g/dL (6.3-8.2); Triglycerides 209 mg/dL (35-150)
[2024-08-20 13:21] LABS: Prostate Specific Antigen Scrn 1.06 ng/mL (0.1-4.0)
== END ==
PROVIDERS: PCP Family Medicine; Referring Provider Family Medicine; Visit Provider Family Medicine
DX: E78.1 Pure hyperglyceridemia (principal); E11.65 Type 2 diabetes mellitus with hyperglycemia; Z12.5 Encounter for screening for malignant neoplasm of prostate; I10 Essential (primary) hypertension; E11.69 Type 2 diabetes mellitus with other specified complication; E78.5 Hyperlipidemia, unspecified
CPT/HCPCS: 36415; 80053; 80061; 83036; 85025; G0103

== ENCOUNTER → 2024-08-27 11:16 | Outpatient (CLI) | payer OTHER, SELFPAY ==
[2024-08-27 14:45] LABS: Creatinine Urine Random 82.25 mg/dL
[2024-08-27 14:51] LABS: Microalbumin Urine Random 15.1 mg/dL (0-1.6)
== END ==
PROVIDERS: PCP Family Medicine; Visit Provider Family Medicine
DX: E78.1 Pure hyperglyceridemia (principal); I10 Essential (primary) hypertension; E11.65 Type 2 diabetes mellitus with hyperglycemia; E78.5 Hyperlipidemia, unspecified; E11.69 Type 2 diabetes mellitus with other specified complication
CPT/HCPCS: 82043; 82570

== ENCOUNTER → 2025-01-04 09:03 | Outpatient (CLI) | payer OTHER, SELFPAY ==
[2025-01-04 10:22] LABS: Hemoglobin A1C% w Est Avg Glu 9.5 % (4.0-6.0)
[2025-01-04 10:32] LABS: Alanine Aminotransferase 49 IU/L (<50); Albumin 4.6 g/dL (3.5-5.0); Albumin Globulin Ratio 1.6 (1.0-2.8); Alkaline Phosphatase 90 U/L (38-126); Aspartate Aminotransferase 39 IU/L (17-59); BUN Creatinine Ratio 21.2 (6-22); Bilirubin Total 0.8 mg/dL (0.2-1.3); Blood Urea Nitrogen 21 mg/dL (9-20); Calcium 9.5 mg/dL (8.4-10.2); Carbon Dioxide 23 mmol/L (22-32); Chloride 102 mmol/L (98-107); Estimated Glomerular Filt Rate > 60 mL/min (>60); Globulin 2.8 g/dL (1.7-4.1); Glucose 205 mg/dL (80-110); HEMOLYSIS < 15 (0-50); Sodium 136 mmol/L (137-145); Total Protein 7.4 g/dL (6.3-8.2)
== END ==
PROVIDERS: PCP Family Medicine; Referring Provider Family Medicine; Visit Provider Family Medicine
DX: E11.65 Type 2 diabetes mellitus with hyperglycemia (principal); E11.69 Type 2 diabetes mellitus with other specified complication; E78.5 Hyperlipidemia, unspecified
CPT/HCPCS: 36415; 80053; 83036

== ENCOUNTER → 2025-04-08 09:45 | Outpatient (CLI) | payer OTHER, SELFPAY ==
[2025-04-08 11:39] LABS: Add Manual Diff / Slide Review NO; Basophils Absolute Auto 100 /uL (0-100); Basophils Percent Auto 0.7 % (0-2); Eosinophils Absolute Auto 500 /uL (0-450); Eosinophils Percent Auto 6.6 % (2-4); Hemoglobin 16.2 g/dL (13.5-17.5); Lymphocytes Absolute Auto 2300 /uL (1100-4500); Lymphocytes Percent Auto 29.8 % (25-40); Mean Corpuscular HGB Conc 33.7 % (30-36); Mean Corpuscular Hemoglobin 28.7 PG (26-34); Mean Corpuscular Volume 85.3 fL (80-100); Monocytes Absolute Auto 500 /uL (0-900); Monocytes Percent Auto 6.3 % (3-14); Neutrophils Absolute Auto 4300 /uL (1500-7000); Neutrophils Percent Auto 56.6 % (50-75); Platelet Count 207 X10^3/uL (150-400); Red Blood Cell Count 5.63 X10^6/uL (4.5-5.9); Red Cell Distribution Width 15.5 % (11.6-14.8); White Blood Cell Count 7.6 X10^3/uL (4.5-11.0)
[2025-04-08 11:52] LABS: Alanine Aminotransferase 35 IU/L (<50); Albumin 4.6 g/dL (3.5-5.0); Albumin Globulin Ratio 1.7 (1.0-2.8); Alkaline Phosphatase 95 U/L (38-126); Aspartate Aminotransferase 32 IU/L (17-59); BUN Creatinine Ratio 21.2 (6-22); Bilirubin Total 0.7 mg/dL (0.2-1.3); Blood Urea Nitrogen 22 mg/dL (9-20); Calcium 9.5 mg/dL (8.4-10.2); Carbon Dioxide 26 mmol/L (22-32); Chloride 99 mmol/L (98-107); Estimated Glomerular Filt Rate > 60 mL/min (>60); Globulin 2.7 g/dL (1.7-4.1); Glucose 259 mg/dL (70-99); HEMOLYSIS < 15 (0-50); Potassium 5.1 mmol/L (3.4-5.1); Sodium 137 mmol/L (137-145); Total Protein 7.3 g/dL (6.3-8.2)
[2025-04-08 12:08] LABS: Hemoglobin A1C% w Est Avg Glu 9.3 % (4.0-6.0)
[2025-04-08 12:26] LABS: Ferritin 37 ng/mL (18-464)
[2025-04-08 14:14] LABS: Creatinine Urine Random 103.35 mg/dL
[2025-04-08 14:17] LABS: Microalbumin Urine Random 7.8 mg/dL (0-1.6)
== END ==
PROVIDERS: PCP Family Medicine; Referring Provider Family Medicine; Visit Provider Family Medicine
DX: E11.65 Type 2 diabetes mellitus with hyperglycemia (principal); I25.10 Atherosclerotic heart disease of native coronary artery without angina pectoris; E78.1 Pure hyperglyceridemia; R79.0 Abnormal level of blood mineral
CPT/HCPCS: 36415; 80053; 82043; 82570; 82728; 83036; 85025

== ENCOUNTER → 2025-09-28 08:54 | Outpatient (CLI) | payer OTHER, SELFPAY ==
[2025-09-28 10:11] LABS: Hemoglobin A1C% w Est Avg Glu 9.4 % (4.0-6.0)
[2025-09-28 10:32] LABS: Alanine Aminotransferase 32 IU/L (<50); Albumin 4.7 g/dL (3.5-5.0); Albumin Globulin Ratio 1.6 (1.0-2.8); Alkaline Phosphatase 95 U/L (38-126); Blood Urea Nitrogen 24 mg/dL (9-20); Calcium 9.5 mg/dL (8.4-10.2); Carbon Dioxide 23 mmol/L (22-32); Chloride 103 mmol/L (98-107); Cholesterol 276 mg/dL (140-199); Estimated Glomerular Filt Rate > 60 mL/min (>60); Globulin 3.0 g/dL (1.7-4.1); Glucose 233 mg/dL (70-99); HDL Cholesterol 37 mg/dL (40-60); HEMOLYSIS < 15 (0-50); Potassium 4.9 mmol/L (3.4-5.1); Sodium 138 mmol/L (137-145); Total Protein 7.7 g/dL (6.3-8.2); Triglycerides 342 mg/dL (35-150)
[2025-09-28 10:36] LABS: Microalbumi Creatinin Ratio Ur 35.0 ug/mg CR (<30)
[2025-09-28 11:01] LABS: TSH w/ Reflex to FT4 4.78 uIU/mL (0.47-4.68)
[2025-09-28 11:32] LABS: Free T4, Direct Thyroxine 1.19 ng/dL (0.78-2.19)
== END ==
PROVIDERS: PCP Family Medicine; Referring Provider Family Medicine; Visit Provider Family Medicine
DX: Z12.5 Encounter for screening for malignant neoplasm of prostate (principal); E11.69 Type 2 diabetes mellitus with other specified complication; E78.5 Hyperlipidemia, unspecified; E11.65 Type 2 diabetes mellitus with hyperglycemia; I25.10 Atherosclerotic heart disease of native coronary artery without angina pectoris; E78.1 Pure hyperglyceridemia; I10 Essential (primary) hypertension
CPT/HCPCS: 36415; 80053; 80061; 82043; 82570; 83036; 84439; 84443; G0103